=== PATIENT | female | born 1975 | race Caucasian/White ===

== ENCOUNTER 2017-05-15 11:28 | Outpatient (CLI) | payer OTHER ==
[2017-05-15 12:32] LABS: Basophils % (A) 0 %; Eosinophils # (A) 0.1 k/uL (0-0.7); Eosinophils % (A) 1 %; HCT 35.1 % (34.0-46.0); HGB 11.4 gm/dL (11.4-16.0); Lymphocytes # (A) 1.9 k/uL (1.0-4.8); Lymphocytes % (A) 25 %; MCH 29.7 pg (25.0-35.0); MCHC 32.6 g/dL (31.0-37.0); Mean Platelet Volume 7.4; Monocytes # (A) 0.4 k/uL (0-1.0); Monocytes % (A) 5 %; Neutrophils # (A) 5.2 k/uL (1.3-7.7); Neutrophils % (A) 68 %; Platelet Count 313 k/uL (150-450); RBC 3.85 m/uL (3.80-5.40); RDW 15.3 % (11.5-15.5); WBC 7.6 k/uL (3.8-10.6)
[2017-05-15 12:39] VITALS: BP 139/76; PULSE 100; TEMP 96.1
[2017-05-15 17:05] VITALS: RESP 16
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
== END 2017-05-15 16:20 | disposition home or self-care (01) ==
LOC: FBPOP 11:28
PROVIDERS: ATTEND Obstetrics & Gynecology Obstetrics
DX: O99.353 Diseases of the nervous system complicating pregnancy, third trimester (principal); G89.11 Acute pain due to trauma; Z3A.35 35 weeks gestation of pregnancy
CPT/HCPCS: 59025; 85025; 85384; 85610; 85730; G0463; 99213

== ENCOUNTER 2020-04-07 16:13 | Emergency (ER) | payer OTHER ==
[2020-04-07 16:22] VITALS: RESP 18
[2020-04-07] MEDS ORDERED: OXYMETAZOLINE 0.05% NASL SPRAY 1 SPRAY BOTTLE NASAL STA (16:24)
--- NOTE | 2020-04-07 16:46 | ED ---
General Adult HPI - General Chief complaint: ENT Stated complaint: Nose Bleed 3hs Time Seen by Provider: 04/07/20 16:23 Source: patient, RN notes reviewed Mode of arrival: ambulatory Limitations: no limitations - History of Present Illness Initial comments: 44-year-old female with a past medical history asthma, diabetes mellitus, chronic sinusitis presents to the emergency room for a chief complaint of nosebleed. Patient reports that 4 days ago she had a Covid test in the right side of the nose. States that yesterday around 3:00 in the morning she had a nosebleed. Patient states that since that time has been bleeding on and off. States he was fine last night and this morning however when she would keep breakfast it started again. Patient then reports it started again a couple hours ago and took about an hour to stop. States it has mostly stopped at this point but is oozing a small amount. Patient does not take blood thinners. She does not have a history of nosebleeds.Patient has no other complaints at this time including shortness of breath, chest pain, abdominal pain, nausea or vomiting, headache, or visual changes. - Related Data Home Medications Medication Instructions Recorded Confirmed Beclomethasone Dip 80 Mcg/Puff 1 puff INHALATION BID 05/24/17 05/25/17 [Qvar 80 mcg] Previous Rx's Medication Instructions Recorded Acetaminophen-Codeine 300-30mg 2 each PO Q4HR PRN #20 tab 05/28/17 [Tylenol w/codeine #3] Albuterol Nebulized [Ventolin 2.5 mg INHALATION QID PRN #1 nebu 05/28/17 Nebulized] Ibuprofen [Motrin] 600 mg PO Q6HR PRN #30 tab 05/28/17 metFORMIN HCL [Glucophage] 1,000 mg PO BID-W/MEALS #60 tab 05/28/17 Allergies Allergy/AdvReac Type Severity Reaction Status Date / Time montelukast [From Singulair] Allergy Rash/Hives Verified 04/07/20 16:15 Penicillins Allergy Unknown Verified 04/07/20 16:15 Childhood Tetanus Vaccines and Toxoid Allergy Unknown Verified 04/07/20 16:15 [Tetanus Vaccines & Toxoid] Review of Systems ROS Statement: Those systems with pertinent positive or pertinent negative responses have been documented in the HPI. ROS Other: All systems not noted in ROS Statement are negative. Past Medical History Past Medical History: Asthma, Diabetes Mellitus, Neurologic Disorder, Seizure Disorder Additional Past Medical History / Comment(s): PCOS. NEUROPATHY History of Any Multi-Drug Resistant Organisms: None Reported Past Surgical History: Adenoidectomy, Section, Orthopedic Surgery, Tonsillectomy Additional Past Surgical History / Comment(s): LT KNEE ACL. ORAL Past Anesthesia/Blood Transfusion Reactions: No Reported Reaction Past Psychological History: Bipolar Smoking Status: Never smoker Past Alcohol Use History: None Reported, Rare Past Drug Use History: None Reported - Past Family History Mother Family Medical History: Diabetes Mellitus General Exam Limitations: no limitations General appearance: alert, in no apparent distress Head exam: Present: atraumatic, normocephalic, normal inspection Eye exam: Present: normal appearance, PERRL, EOMI. Absent: scleral icterus, conjunctival injection, periorbital swelling ENT exam: Present: normal exam, normal oropharynx (No bleeding in the oropharynx), mucous membranes moist, other (Patient has slight oozing from the right near) Neck exam: Present: normal inspection, full ROM. Absent: tenderness, meningismus, lymphadenopathy Respiratory exam: Present: normal lung sounds bilaterally. Absent: respiratory distress, wheezes, rales, rhonchi, stridor Cardiovascular Exam: Present: regular rate, normal rhythm, normal heart sounds. Absent: systolic murmur, diastolic murmur, rubs, gallop, clicks GI/Abdominal exam: Present: soft, normal bowel sounds. Absent: distended, tenderness, guarding, rebound, rigid Course Vital Signs 04/07/20 16:16 Temperature 98.5 F Pulse Rate 105 H Respiratory 18 Rate Blood Pressure 144/87 O2 Sat by Pulse 97 Oximetry Medical Decision Making - Medical Decision Making HPI physical exam as documented. Patient did have some minimal bleeding from the right nostril on presentation. She has no bleeding in the back of the throat. I do not see any area to cauterize bleeding. Afrin was applied and nasal clamp was applied for 20 minutes. Bleeding did cease. Patient was able to drink and ambulate throughout the ER without rebleed. I discussed nasal packing, at this time patient prefers to go home with Afrin and nasal clamp and return if bleeding worsens for packing. She will follow up with ENT, referral given. She will return here for any worsening symptoms. Disposition Clinical Impression: Epistaxis Disposition: HOME SELF-CARE Condition: Good Instructions (If sedation given, give patient instructions): Nosebleed (ED) Additional Instructions: If bleeding starts again spray 2 sprays of Afrin in each nostril and clamp for 20 minutes. If this does not work repeat this process one more time. If bleeding still will not stop return to the emergency department for nasal packing. Otherwise follow-up with ENT and try not to blow your nose. Is patient prescribed a controlled substance at d/c from ED?: No Referrals: Sylvester Babin DO [Primary Care Provider] - 1-2 days Pascual Oliveira MD [STAFF PHYSICIAN] - 1-2 days Time of Disposition: 17:13
[2020-04-07 17:29] VITALS: BP 142/77; PULSE 97; TEMP 98.1
== END 2020-04-07 17:29 | disposition home or self-care (01) ==
LOC: EC 16:13
DX: R04.0 Epistaxis (principal); J45.909 Unspecified asthma, uncomplicated; E11.40 Type 2 diabetes mellitus with diabetic neuropathy, unspecified; Z79.84 Long term (current) use of oral hypoglycemic drugs; Z88.0 Allergy status to penicillin; Z88.7 Allergy status to serum and vaccine; Z88.8 Allergy status to other drugs, medicaments and biological substances; Z79.51 Long term (current) use of inhaled steroids
CPT/HCPCS: 30901; 99283

== ENCOUNTER 2020-07-02 10:09 | Inpatient (IN) | payer OTHER ==
[2020-07-02] MEDS ORDERED: ONDANSETRON 4 MG/2 ML VIAL IVP STA (11:03)
[2020-07-02 11:07] LABS: Basophils % (A) 0 %; Eosinophils # (A) 0.5 k/uL (0-0.7); Eosinophils % (A) 6 %; HCT 38.6 % (34.0-46.0); HGB 13.1 gm/dL (11.4-16.0); Lymphocytes # (A) 1.6 k/uL (1.0-4.8); Lymphocytes % (A) 19 %; MCH 30.9 pg (25.0-35.0); MCV 90.8 fL (80.0-100.0); Mean Platelet Volume 6.7; Monocytes # (A) 0.4 k/uL (0-1.0); Monocytes % (A) 5 %; Neutrophils # (A) 5.9 k/uL (1.3-7.7); Neutrophils % (A) 69 %; Platelet Count 361 k/uL (150-450); RBC 4.25 m/uL (3.80-5.40); RDW 12.9 % (11.5-15.5); WBC 8.6 k/uL (3.8-10.6)
[2020-07-02 11:20] LABS: Partial Thromboplastin Time 24.3 sec (22.0-30.0); Prothrombin Time 10.4 sec (9.0-12.0)
[2020-07-02 11:29] LABS: ALT 32 U/L (4-34); AST 31 U/L (14-36); African American GFR (CKD) >90 (>60 ml/min/1.73 sqM); Albumin 4.3 g/dL (3.5-5.0); Alkaline Phosphatase 58 U/L (38-126); Anion Gap 8 mmol/L; Blood Urea Nitrogen 17 mg/dL (7-17); Calcium 9.8 mg/dL (8.4-10.2); Carbon Dioxide 34 mmol/L (22-30); Chloride 100 mmol/L (98-107); Glucose 129 mg/dL (74-99); Non-African American GFR(CKD) >90 (>60 ml/min/1.73 sqM); Potassium 4.3 mmol/L (3.5-5.1); Sodium 142 mmol/L (137-145); Total Bilirubin 0.9 mg/dL (0.2-1.3); Total Protein 7.4 g/dL (6.3-8.2)
[2020-07-02] MEDS ORDERED: OXYMETAZOLINE 0.05% NASL SPRAY 1 SPRAY BOTTLE NASAL STA (11:44)
[2020-07-02 12:10] LABS: Appearance,Urine Cloudy (Clear); Bacteria,Urine Rare /hpf; Bilirubin,Urine Negative (Negative); Blood,Urine Moderate (Negative); Color,Urine Yellow; Glucose,Urine (UA) Negative (Negative); Hyaline Casts,Urine 7 /lpf (0-2); Ketones,Urine Negative (Negative); Leukocyte Esterase,Urine Moderate (Negative); Mucus,Urine Many /hpf; Nitrite,Urine Negative (Negative); PH, Urine 5.5 (5.0-8.0); Protein,Urine 1+ (Negative); RBC,Urine 106 /hpf (0-5); Specific Gravity,Urine 1.029 (1.001-1.035); Squamous Epithelial Cell,Urine 10 /hpf (0-4); Urobilinogen,Urine <2.0 mg/dL (<2.0); WBC,Urine 2 /hpf (0-5)
--- NOTE | 2020-07-02 12:10 | ED ---
Nausea/Vomiting/Diarrhea HPI - General Chief complaint: Nausea/Vomiting/Diarrhea Stated complaint: vomiting blood Time Seen by Provider: 07/02/20 10:47 Source: patient, family Mode of arrival: wheelchair Limitations: no limitations - History of Present Illness Initial comments: Patient is a 44-year-old female, history of diabetes, presenting to emergency Department with complaints of bleeding from her sinuses for the past hour. 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 She was seeing Dr. Familia Nolan, as well as Dr. Sargent. She states she just recently is ready to start with treatment however she has not had any yet. Patient states she normally has some drainage from her sinuses but has never been this significant. Patient is continuously coughing up blood that is draining from back from her sinuses. She denies any nasal bleeding. She is having some nausea, little bit of stomach irritation. No fevers or chills. She denies any trauma. He is not on blood thinners. She has no further complaints at this time. Her vital signs are stable upon arrival. - Related Data Home Medications Medication Instructions Recorded Confirmed Albuterol Sulfate [Proair Hfa] 2 puff INHALATION RT-Q6H PRN 07/02/20 07/02/20 Atorvastatin [Lipitor] 40 mg PO HS 07/02/20 07/02/20 Cyanocobalamin (Vitamin B-12) 2,500 mcg PO BID 07/02/20 07/02/20 [Vitamin B-12] Ergocalciferol [Vitamin D2 (1250 1,250 mcg PO MO 07/02/20 07/02/20 Mcg = [id number] Iu)] Gabapentin [Neurontin] 300 mg PO HS 07/02/20 07/02/20 Ibuprofen [Motrin Ib] 800 mg PO Q8H PRN 07/02/20 07/02/20 Multivitamins, Thera [Multivitamin 1 tab PO DAILY 07/02/20 07/02/20 (formulary)] Previous Rx's Medication Instructions Recorded metFORMIN HCL [Glucophage] 1,000 mg PO BID-W/MEALS #60 tab 05/28/17 Allergies Allergy/AdvReac Type Severity Reaction Status Date / Time montelukast [From Singulair] Allergy Rash/Hives Verified 07/02/20 13:23 Penicillins Allergy Unknown Verified 07/02/20 13:23 Childhood Tetanus Vaccines and Toxoid Allergy Unknown Verified 07/02/20 13:23 [Tetanus Vaccines & Toxoid] Review of Systems ROS Statement: Those systems with pertinent positive or pertinent negative responses have been documented in the HPI. ROS Other: All systems not noted in ROS Statement are negative. Past Medical History Past Medical History: Asthma, Diabetes Mellitus, Neurologic Disorder, Seizure Disorder Additional Past Medical History / Comment(s): PCOS. NEUROPATHY. lymphoma dx 6 months History of Any Multi-Drug Resistant Organisms: None Reported Past Surgical History: Adenoidectomy, Section, Orthopedic Surgery, Tonsillectomy Additional Past Surgical History / Comment(s): LT KNEE ACL. ORAL Past Anesthesia/Blood Transfusion Reactions: No Reported Reaction Past Psychological History: Bipolar Smoking Status: Never smoker Past Alcohol Use History: None Reported, Rare Past Drug Use History: None Reported - Past Family History Mother Family Medical History: Diabetes Mellitus General Exam - General Exam Comments Initial Comments: GENERAL: Patient is well-developed and well-nourished. Patient is nontoxic and in mild distress. HEAD: Atraumatic, normocephalic. EYES: Pupils equal round and reactive to light, extraocular movements intact, sclera anicteric, conjunctiva are normal. Eyelids were unremarkable. ENT: TMs normal, nares patent, no bleeding or dried blood in the nasal passages, or opharynx clear without exudates. Patient has blood clot hanging from the posterior throat, continuously coughing up blood. NECK: Normal range of motion, supple without lymphadenopathy or JVD. LUNGS: Unlabored respirations. Breath sounds clear to auscultation bilaterally and eq ual. No wheezes rales or rhonchi. HEART: Regular rate and rhythm without murmurs, rubs or gallops. ABDOMEN: Soft, nontender, normoactive bowel sounds. No guarding, no rebound. No masses appreciated. : Deferred MUSCULOSKELETAL: Normal extremities with adequate strength and normal range of motion, no pitting or edema. No clubbing or cyanosis. NEUROLOGICAL: Patient is alert and oriented x 3. Motor and sensory are also intact. Cranial nerves II through XII grossly intact. Symmetrical smile. Normal speech, normal gait. PSYCH: Normal mood, normal affect. SKIN: Warm, Dry, normal turgor, no rashes or lesions noted. 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 She is not on blood thinners. Vitals are stable. Patient is not having any nasal bleeding, drainage is Posterior, blood clots visable from the posterior throat. CT scan on 05/14/20 reads a large enhancing mass within the nasopharynx which measures 4.9 cm x 3.9 cm. This mass is extending into the nasal passages bilaterally and causing blockage to the bilateral nasal passages. Labs are stable including stable hemoglobin, coag factors. I was able to speak with LIN Alcantara from Dr. Sargent's office who consulted with Dr. Izquierdo and agreed to admission, with consult to Dr. Lemus to possible start radiation. Upon reexamination, bleeding has stopped, patient is resting, vitals are stable. Patient accepted by Dr. snider. Case discussed with Dr. Bermudez. - Lab Data Result diagrams: 07/02/20 10:58 07/02/20 10:58 Lab Results 07/02/20 07/02/20 07/02/20 Range/Units 10:58 10:58 10:58 WBC 8.6 (3.8-10.6) k/uL RBC 4.25 (3.80-5.40) m/uL Hgb 13.1 (11.4-16.0) gm/dL Hct 38.6 (34.0-46.0) % MCV 90.8 (80.0-100.0) fL MCH 30.9 (25.0-35.0) pg MCHC 34.0 (31.0-37.0) g/dL RDW 12.9 (11.5-15.5) % Plt Count 361 (150-450) k/uL MPV 6.7 Neutrophils % 69 % Lymphocytes % 19 % Monocytes % 5 % Eosinophils % 6 % Basophils % 0 % Neutrophils # 5.9 (1.3-7.7) k/uL Lymphocytes # 1.6 (1.0-4.8) k/uL Monocytes # 0.4 (0-1.0) k/uL Eosinophils # 0.5 (0-0.7) k/uL Basophils # 0.0 (0-0.2) k/uL PT 10.4 (9.0-12.0) sec INR 1.0 (<1.2) APTT 24.3 (22.0-30.0) sec Sodium 142 (137-145) mmol/L Potassium 4.3 (3.5-5.1) mmol/L Chloride 100 (98-107) mmol/L Carbon Dioxide 34 H (22-30) mmol/L Anion Gap 8 mmol/L BUN 17 (7-17) mg/dL Creatinine 0.60 (0.52-1.04) mg/dL Est GFR (CKD-EPI)AfAm >90 (>60 ml/min/1.73 sqM) Est GFR (CKD-EPI)NonAf >90 (>60 ml/min/1.73 sqM) Glucose 129 H (74-99) mg/dL Calcium 9.8 (8.4-10.2) mg/dL Total Bilirubin 0.9 (0.2-1.3) mg/dL AST 31 (14-36) U/L ALT 32 (4-34) U/L Alkaline Phosphatase 58 (38-126) U/L Total Protein 7.4 (6.3-8.2) g/dL Albumin 4.3 (3.5-5.0) g/dL Urine Color Urine Appearance (Clear) Urine pH (5.0-8.0) Ur Specific [place] (1.001-1.035) Urine Protein (Negative) Urine Glucose (UA) (Negative) Urine Ketones (Negative) Urine Blood (Negative) Urine Nitrite (Negative) Urine Bilirubin (Negative) Urine Urobilinogen (<2.0) mg/dL Ur Leukocyte Esterase (Negative) Urine RBC (0-5) /hpf Urine WBC (0-5) /hpf Ur Squamous Epith Cells (0-4) /hpf Urine Bacteria (None) /hpf Hyaline Casts (0-2) /lpf Urine Mucus (None) /hpf Urine HCG, Qual (Not Detectd) 07/02/20 07/02/20 Range/Units 11:54 11:54 WBC (3.8-10.6) k/uL RBC (3.80-5.40) m/uL Hgb (11.4-16.0) gm/dL Hct (34.0-46.0) % MCV (80.0-100.0) fL MCH (25.0-35.0) pg MCHC (31.0-37.0) g/dL RDW (11.5-15.5) % Plt Count (150-450) k/uL MPV Neutrophils % % Lymphocytes % % Monocytes % % Eosinophils % % Basophils % % Neutrophils # (1.3-7.7) k/uL Lymphocytes # (1.0-4.8) k/uL Monocytes # (0-1.0) k/uL Eosinophils # (0-0.7) k/uL Basophils # (0-0.2) k/uL PT (9.0-12.0) sec INR (<1.2) APTT (22.0-30.0) sec Sodium (137-145) mmol/L Potassium (3.5-5.1) mmol/L Chloride (98-107) mmol/L Carbon Dioxide (22-30) mmol/L Anion Gap mmol/L BUN (7-17) mg/dL Creatinine (0.52-1.04) mg/dL Est GFR (CKD-EPI)AfAm (>60 ml/min/1.73 sqM) Est GFR (CKD-EPI)NonAf (>60 ml/min/1.73 sqM) Glucose (74-99) mg/dL Calcium (8.4-10.2) mg/dL Total Bilirubin (0.2-1.3) mg/dL AST (14-36) U/L ALT (4-34) U/L Alkaline Phosphatase (38-126) U/L Total Protein (6.3-8.2) g/dL Albumin (3.5-5.0) g/dL Urine Color Yellow Urine Appearance Cloudy H (Clear) Urine pH 5.5 (5.0-8.0) Ur Specific [place] 1.029 (1.001-1.035) Urine Protein 1+ H (Negative) Urine Glucose (UA) Negative (Negative) Urine Ketones Negative (Negative) Urine Blood Moderate H (Negative) Urine Nitrite Negative (Negative) Urine Bilirubin Negative (Negative) Urine Urobilinogen <2.0 (<2.0) mg/dL Ur Leukocyte Esterase Moderate H (Negative) Urine RBC 106 H (0-5) /hpf Urine WBC 2 (0-5) /hpf Ur Squamous Epith Cells 10 H (0-4) /hpf Urine Bacteria Rare H (None) /hpf Hyaline Casts 7 H (0-2) /lpf Urine Mucus Many H (None) /hpf Urine HCG, Qual Not Detected (Not Detectd) Disposition Clinical Impression: Hemorrhage pharyngeal, History of lymphoma Disposition: ADMITTED IP TO THIS HOSP Condition: Stable Decision Date: 07/02/20 Decision Time: 13:31
[2020-07-02] MEDS ORDERED: ACETAMINOPHEN TAB 325 MG TAB PO PRN (12:50)
[2020-07-02] MEDS ORDERED: NALOXONE 0.4 MG/ML 1 ML VIAL IV PRN (12:50)
[2020-07-02] MEDS ORDERED: OCTREOTIDE 100 MCG/ML INJ IVP STA (13:03)
[2020-07-02] MEDS ORDERED: DESMOPRESSIN ACETATE 40 MCG in SODIUM CHLORIDE 0.9% 50 ML IVPB ONE (13:20)
--- NOTE | 2020-07-02 14:45 | P.HPIM ---
History of Present Illness This is a pleasant 44 years old female with past medical history of asthma, diabetes mellitus, seizure disorder, she was diagnosed with lymphoma 6 months ago and she follows up with Dr. martin also she has history of bipolar disord er. She presents because of vomiting blood for 1 hour, she was spitting blood. Patient states that she was recently diagnosed with lymphoma, she had blood nose for three days, and ENT MD at [place] did MRI with biopsy which came back positive for lymphoma, she was diagnosed with lymphoma including both maxillary sinuses as per patient and the tube from her right ear to cheek per her description. she saw about three weeks ago who referred her to at [facility] in [place] who diagnosed her the type of lymphoma and she is stage IE, she suppose to see again but she started noticing vomiting blood in the morning over two day and on today she woke up with pouring blood down her throat and she came to ED Abdominal she had some abdominal discomfort which is resolved with medication. She denies nausea vomiting. Her urinalysis was suspicious for infection however patient denies any symptoms, no dysuria urgency or hesitancy, no suprapubic tenderness, no other flank pain. No other symptoms She denies smoking, alcohol or illicit drugs She denies depression or active bipolar symptoms, she denies suicidal ideation She is hemodynamically stable. Labs are stable including normal hemoglobin at 13.1, rest of CBC, INR, BMP and liver enzymes are unremarkable. Urinalysis is suspicious for infection, urine analysis culture is pending Emergency room staff Dr. Dr. Sargent wanted to be admitted and evaluated by in- house oncologist and radiotherapist In the emergency room she received 1 dose of desmopressin and started on octreotide and Afrin nasal spray Review of Systems CONSTITUTIONAL: No fever, no malaise, no fatigue. HEENT: No recent visual problems or hearing problems. Denied any sore throat. CARDIOVASCULAR: No orthopnea, PND, no palpitations, no syncope. PULMONARY: No shortness of breath, no cough, no hemoptysis. GASTROINTESTINAL: No diarrhea, no nausea, no vomiting, no abdominal pain. Normoactive bowel sounds. NEUROLOGICAL: No headaches, no weakness, no numbness. HEMATOLOGICAL: Denies any bleeding or petechiae. GENITOURINARY: Denies any burning micturition, frequency, or urgency. MUSCULOSKELETAL/RHEUMATOLOGICAL: Denies any joint pain, swelling, or any muscle pain. ENDOCRINE: Denies any polyuria or polydipsia. Past Medical History Past Medical History: Asthma, Diabetes Mellitus, Neurologic Disorder, Seizure Disorder Additional Past Medical History / Comment(s): PCOS. NEUROPATHY. lymphoma dx 6 months History of Any Multi-Drug Resistant Organisms: None Reported Past Surgical History: Adenoidectomy, Section, Orthopedic Surgery, Tonsillectomy Additional Past Surgical History / Comment(s): LT KNEE ACL. ORAL Past Anesthesia/Blood Transfusion Reactions: No Reported Reaction Past Psychological History: Bipolar Smoking Status: Never smoker Past Alcohol Use History: None Reported, Rare Past Drug Use History: None Reported - Past Family History Mother Family Medical History: Diabetes Mellitus Medications and Allergies Home Medications Medication Instructions Recorded Confirmed Type metFORMIN HCL [Glucophage] 1,000 mg PO BID-W/MEALS #60 tab 05/28/17 07/02/20 Rx Albuterol Sulfate [Proair Hfa] 2 puff INHALATION RT-Q6H PRN 07/02/20 07/02/20 History Atorvastatin [Lipitor] 40 mg PO HS 07/02/20 07/02/20 History Cyanocobalamin (Vitamin B-12) 2,500 mcg PO BID 07/02/20 07/02/20 History [Vitamin B-12] Ergocalciferol [Vitamin D2 (1250 1,250 mcg PO MO 07/02/20 07/02/20 History Mcg = 55027 Iu)] Gabapentin [Neurontin] 300 mg PO HS 07/02/20 07/02/20 History Ibuprofen [Motrin Ib] 800 mg PO Q8H PRN 07/02/20 07/02/20 History Multivitamins, Thera [Multivitamin 1 tab PO DAILY 07/02/20 07/02/20 History (formulary)] Allergies Allergy/AdvReac Type Severity Reaction Status Date / Time [facility] Allergy Rash/Hives Verified 07/02/20 13:23 Penicillins Allergy Unknown Verified 07/02/20 13:23 Childhood Tetanus Vaccines and Toxoid Allergy Unknown Verified 07/02/20 13:23 [Tetanus Vaccines & Toxoid] Physical Exam Vitals: Vital Signs Temp Pulse Resp BP Pulse Ox 07/02/20 10:18 98.1 F 105 H 18 121/75 96 Intake and Output 07/01/20 07/02/20 07/02/20 22:59 06:59 14:59 Other: Weight 141.974 kg -GENERAL: The patient is alert and oriented x3, not in any acute distress. Obese HEENT: Pupils are round and equally reacting to light. EOMI. No scleral icterus. No conjunctival pallor. Normocephalic, atraumatic. No pharyngeal erythema. No thyromegaly. CARDIOVASCULAR: S1 and S2 present. No murmurs, rubs, or gallops. PULMONARY: Chest is clear to auscultation, no wheezing or crackles. ABDOMEN: Soft, nontender, nondistended, normoactive bowel sounds. No palpable organomegaly. MUSCULOSKELETAL: No joint swelling or deformity. EXTREMITIES: No cyanosis, clubbing, or pedal edema. NEUROLOGICAL: Gross neurological examination did not reveal any focal deficits. SKIN: No rashes. No petechiae Results CBC & Chem 7: 07/02/20 10:58 07/02/20 10:58 Labs: Abnormal Lab Results - Last 24 Hours (Table) 07/02/20 07/02/20 Range/Units 10:58 11:54 Carbon Dioxide 34 H (22-30) mmol/L Glucose 129 H (74-99) mg/dL Urine Appearance Cloudy H (Clear) Urine Protein 1+ H (Negative) Urine Blood Moderate H (Negative) Ur Leukocyte Esterase Moderate H (Negative) Urine RBC 106 H (0-5) /hpf Ur Squamous Epith Cells 10 H (0-4) /hpf Urine Bacteria Rare H (None) /hpf Hyaline Casts 7 H (0-2) /lpf Urine Mucus Many H (None) /hpf Assessment and Plan Assessment: Possible acute epistaxis related to her lymphoma sinus disease Lymphoma and follow-up with Dr. martin Asymptomatic bacteriuria Type 2 diabetes mellitus History of Seizure disorder Hyperlipidemia Obesity Plan: this is a pleasant 44 years old female who presents with possible epistaxis related to her lymphoma disease. Hemoglobin stable, keep monitoring hemoglobin and vitals. Follow-up recommendation by oncologist and radiotherapist. Continue with octreotide per oncologist Labs and medication were reviewed.. Continue same treatment. Continue with symptomatic treatment. Resume home medication. Monitor lytes and vitals. DVT and GI prophylaxis. Further recommendations depends on the clinical course of the patient DVT prophylaxis: SCD GI Prophylaxis: Pepcid Prognosis is guarded
[2020-07-02 20:53] LABS: Glucose,Whole Blood 183 mg/dL (75-99)
[2020-07-02] MEDS ORDERED: ALBUTEROL NEBULIZED 2.5 MG/3 ML INHALATION PRN (22:22)
[2020-07-02] MEDS: GABAPENTIN 300 MG CAP PO SCH (22:55)
[2020-07-02] MEDS: ATORVASTATIN 40 MG TAB PO SCH (22:55)
[2020-07-02] MEDS: OCTREOTIDE 100 MCG/ML INJ IVP SCH (22:56)
[2020-07-02] MEDS: SODIUM CHLORIDE 0.9% 1,000 ML IV SCH (22:56)
--- NOTE | 2020-07-02 23:41 | P.CONS ---
History of Present Illness - Reason for Consult Consult date: 07/02/20 - History of Present Illness The pt is a 44 yr old WF, recently seen by Dr Sargent for initial consult, on 06/11/20. She had presented with recurrent head & facial central congestion diagnosed as recurrent & chronic sinusitis, treated with multiple courses of antibiotics with minimal or no benefit. She was eventually evaluated by ENT (Dr Marin) at [facility], CT Scan on 05/14/2010 revealed 4.9X3.9 cm nasopharyngeal mass confirmed by MRI, had biopsy on 05/21/2020 revealed diffuse large B-Cell lymphoma. The patient C/O facial pain but denied chest pain, SOB, fever, chills, night sweats, anorexia or weight loss. 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 Denied family history of hematologic malignancies, a sister, mother and 2 maternal aunts had uterine cancers She is a lifetime non smoker, denied ETOH use. The patient had been having some mild intermittent nasal bleeding. However over the last 2-3 days, she had felt increased amount of bleeding posteriorly down the back of her throat, and was also coughing and pooling of blood. She therefore came into the emergency room. Case was discussed with the ER physician. Patient was admitted for further management. She is not on any anticoagulation, or antiplatelet agents. She also denied any NSAID use on a regular basis Review of Systems Constitutional: Denies chills, Denies fever Eyes: denies blurred vision, denies pain Ears: deny: decreased hearing, ear discharge, earache, tinnitus Ears, nose, mouth and throat: Reports epistaxis, Reports nasal congestion, Reports nasal discharge, Reports sinus pressure Cardiovascular: Denies chest pain, Denies shortness of breath Respiratory: Reports hemoptysis, Denies cough Gastrointestinal: Reports hematemesis Genitourinary: Denies dysuria, Denies hematuria Musculoskeletal: Denies myalgias Integumentary: Denies pruritus, Denies rash Neurological: Denies numbness, Denies weakness Psychiatric: Denies anxiety, Denies depression Endocrine: Reports fatigue, Reports high blood sugars Hematologic/Lymphatic: Reports as per HPI Past Medical History Past Medical History: Asthma, Diabetes Mellitus, Hyperlipidemia, Pneumonia, Seizure Disorder Additional Past Medical History / Comment(s): Lymphoma both maxillary sinuses diagnosed approximately 3 months ago/pt states the plan is to be treated with chemotherapy and she is to have a port placed on 2020, NIDDM type II, neuropathy bilateral feet, bronchitis, PCOS, past epilepsy with last seizure 25 yrs ago, chronic headaches and chronic low back pain, arthritis bilateral knnes/feet/back, tendonitis bilateral elbows. History of Any Multi-Drug Resistant Organisms: None Reported Past Surgical History: Adenoidectomy, Section, Orthopedic Surgery, Tonsillectomy, Tubal Ligation Additional Past Surgical History / Comment(s): sinus biopsy, Age 16-T&A with sinus scraped and used cocaine/pt accidentally was overdosed and arrested twice, L knee ACL removed, wisdom teeth extractions. Past Anesthesia/Blood Transfusion Reactions: No Reported Reaction Smoking Status: Never smoker - Past Family History Mother Family Medical History: Diabetes Mellitus Additional Family Medical History / Comment(s): Mother of covid pneumonia. Father Family Medical History: Asthma, Cancer, Seizure Disorder Additional Family Medical History / Comment(s): Father of laryngeal cancer. He was smoker. Medications and Allergies Home Medications Medication Instructions Recorded Confirmed Type metFORMIN HCL [Glucophage] 1,000 mg PO BID-W/MEALS #60 tab 05/28/17 07/02/20 Rx Albuterol Sulfate [Proair Hfa] 2 puff INHALATION RT-Q6H PRN 07/02/20 07/02/20 History Atorvastatin [Lipitor] 40 mg PO HS 07/02/20 07/02/20 History Cyanocobalamin (Vitamin B-12) 2,500 mcg PO BID 07/02/20 07/02/20 History [Vitamin B-12] Ergocalciferol [Vitamin D2 (1250 1,250 mcg PO MO 07/02/20 07/02/20 History Mcg = 02946 Iu)] Gabapentin [Neurontin] 300 mg PO HS 07/02/20 07/02/20 History Ibuprofen [Motrin Ib] 800 mg PO Q8H PRN 07/02/20 07/02/20 History Multivitamins, Thera [Multivitamin 1 tab PO DAILY 07/02/20 07/02/20 History (formulary)] Allergies Allergy/AdvReac Type Severity Reaction Status Date / Time montelukast [From Singulair] Allergy Rash/Hives Verified 03/18/21 13:23 Penicillins Allergy Unknown Verified 07/02/20 13:23 Childhood Tetanus Vaccines and Toxoid Allergy Unknown Verified 07/02/20 13:23 [Tetanus Vaccines & Toxoid] Physical Exam Vitals: Vital Signs Temp Pulse Pulse Resp BP BP Pulse Ox 07/02/20 20:40 98.3 F 112 H 16 139/84 94 L 07/02/20 18:18 98.4 F 90 18 120/78 99 07/02/20 13:41 88 18 122/81 98 07/02/20 10:18 98.1 F 105 H 18 121/75 96 Intake and Output 07/02/20 07/02/20 07/03/20 14:59 22:59 06:59 Other: Weight 141.974 kg 141.974 kg - Constitutional General appearance: no acute distress - EENT Eyes: EOMI, PERRLA ENT: hearing grossly normal, normal oropharynx - Neck Thyroid: bilateral: normal size - Respiratory Respiratory: bilateral: CTA - Cardiovascular Rhythm: regular Heart sounds: normal: S1, S2 - Gastrointestinal General gastrointestinal: normal bowel sounds, soft - Integumentary Integumentary: normal - Neurologic Neurologic: CNII-XII intact - Musculoskeletal Musculoskeletal: strength equal bilaterally - Psychiatric Psychiatric: A&O x's 3, appropriate affect Bilateral nasal condition, manifested by nasal/muffled voice Results CBC & Chem 7: 07/02/20 10:58 07/02/20 10:58 Labs: Abnormal Lab Results - Last 24 Hours (Table) 07/02/20 07/02/20 07/02/20 Range/Units 10:58 11:54 20:51 Carbon Dioxide 34 H (22-30) mmol/L Glucose 129 H (74-99) mg/dL POC Glucose (mg/dL) 183 H (75-99) mg/dL Urine Appearance Cloudy H (Clear) Urine Protein 1+ H (Negative) Urine Blood Moderate H (Negative) Ur Leukocyte Esterase Moderate H (Negative) Urine RBC 106 H (0-5) /hpf Ur Squamous Epith Cells 10 H (0-4) /hpf Urine Bacteria Rare H (None) /hpf Hyaline Casts 7 H (0-2) /lpf Urine Mucus Many H (None) /hpf Assessment and Plan (1) Hemorrhage pharyngeal Narrative/Plan: The patient is having bleeding from her nasopharyngeal lymphomatous lesion, down the posterior pharyngeal wall causing hematemesis and hemoptysis. Fortunately hemoglobin has not dropped significantly and remains in the normal range. She was having fairly mild intermittent hemoptysis before, but current presentation was much more severe. - Patient was therefore admitted for further management. Case discussed in d etail with the ER physician. Also discussed with the patient. senior living control of symptoms would obviously depend treatment of the underlying pathology, with chemoimmunotherapy. For immediate, short-term control, DDAVP was recommended. Since admission session hemorrhage has essentially ceased. - Continue to monitor. If this recurs, for short-term control, Sandostatin gtt can be utilized. In that case radiation oncology can also be consulted for short course of radiation, prior to starting chemo-immunotherapy. Current Visit: Yes Status: Acute Code(s): R04.1 - HEMORRHAGE FROM THROAT SNOMED Code(s): 834438795 (2) Non-Hodgkin's lymphoma of nasopharynx Narrative/Plan: This is a new diagnosis, and the patient has not started any treatment. As noted above, short course of radiotherapy can be utilized, if needed for control of hemorrhage. Patient was subsequently proceed to definitive treatment with chemotherapy-immunotherapy on discharge. Follow-up with Dr. Sargent on discharge Current Visit: Yes Status: Acute Code(s): C85.91 - NON-HODGKIN LYMPHOMA, UN SP, NODES OF HEAD, FACE, AND NECK SNOMED Code(s): 268939582
[2020-07-03] MEDS: OCTREOTIDE 100 MCG/ML INJ IVP SCH ×3 (06:05→21:03)
[2020-07-03 07:24] LABS: Glucose,Whole Blood 166 mg/dL (75-99)
[2020-07-03 09:52] LABS: Basophils % (A) 0 %; Eosinophils # (A) 0.6 k/uL (0-0.7); Eosinophils % (A) 7 %; HCT 36.5 % (34.0-46.0); Lymphocytes # (A) 1.7 k/uL (1.0-4.8); Lymphocytes % (A) 20 %; MCH 30.6 pg (25.0-35.0); MCHC 32.9 g/dL (31.0-37.0); MCV 93.1 fL (80.0-100.0); Mean Platelet Volume 6.7; Monocytes # (A) 0.3 k/uL (0-1.0); Monocytes % (A) 3 %; Neutrophils # (A) 5.8 k/uL (1.3-7.7); Neutrophils % (A) 69 %; Platelet Count 362 k/uL (150-450); RBC 3.92 m/uL (3.80-5.40); RDW 13.1 % (11.5-15.5); WBC 8.4 k/uL (3.8-10.6)
[2020-07-03 10:08] LABS: ALT 34 U/L (4-34); AST 31 U/L (14-36); African American GFR (CKD) >90 (>60 ml/min/1.73 sqM); Albumin 4.3 g/dL (3.5-5.0); Albumin/Globulin Ratio 1.4; Alkaline Phosphatase 61 U/L (38-126); Anion Gap 8 mmol/L; Blood Urea Nitrogen 16 mg/dL (7-17); Calcium 8.9 mg/dL (8.4-10.2); Carbon Dioxide 32 mmol/L (22-30); Chloride 96 mmol/L (98-107); Globulin 3.1 g/dL; Glucose 161 mg/dL (74-99); Non-African American GFR(CKD) >90 (>60 ml/min/1.73 sqM); Potassium 4.7 mmol/L (3.5-5.1); Sodium 136 mmol/L (137-145); Total Bilirubin 1.6 mg/dL (0.2-1.3); Total Protein 7.4 g/dL (6.3-8.2)
[2020-07-03] MEDS: metFORMIN 500 MG TAB PO SCH ×2 (10:08→20:23)
[2020-07-03] MEDS: CYANOCOBALAMIN 500 MCG TAB PO SCH ×2 (10:08→21:03)
[2020-07-03] MEDS: MULTIVITAMINS, THERA 1 EACH TAB PO SCH (10:09)
[2020-07-03] MEDS: INSULIN ASPART (NovoLOG) 100 UNIT/ML VIAL SQ SCH ×4 (10:09→21:08)
[2020-07-03] MEDS: IBUPROFEN 400 MG TAB PO PRN (10:10)
[2020-07-03 11:29] LABS: Glucose,Whole Blood 161 mg/dL (75-99)
[2020-07-03] MEDS ORDERED: LIDOCAINE 1% INJ 10MG/ML (20 ML MDV) SQ ONE (12:01)
[2020-07-03] MEDS: predniSONE 20 MG TAB PO SCH (12:36)
[2020-07-03] MEDS: SODIUM CHLORIDE 0.9% 1,000 ML IV SCH (12:36)
[2020-07-03] MEDS: PANTOPRAZOLE 40 MG TABLET PO SCH ×2 (12:36→21:03)
--- NOTE | 2020-07-03 12:41 | IR ---
PICC LINE PLACEMENT: HISTORY: Infection requiring long-term antibiotic therapy PROCEDURE: Ultrasound and fluoroscopic guidance of PICC line placement. COMPLICATIONS: None ANESTHESIA: 1. 1% Lidocaine locally. FINDINGS/TECHNIQUE: The procedure was explained to the patient. The risks, complications, benefits and alternatives were discussed and any questions were answered. Informed consent was obtained. The patient was placed supine on the fluoroscopic table and prepped and draped in the usual sterile fash ion. Utilizing a 21 gauge needle and sonographic and fluoroscopic guidance, access in the left basi lic vein was achieved and there is placement of a 0.018 guidewire. The vein is patent. A 4-F sheath was placed over the guidewire. The guidewire and dilator were removed and a 4-F. PICC line was plac ed through the sheath with the tip at the level of the SVC. The sheath was removed, the catheter was flushed and sutured into position. The patient was stable throughout the procedure and remained sta ble upon discharge from the Department of Radiology. The vein puncture was patent under ultrasound. A johnson scale image was obtained to document patency of the vein punctured. All elements of the maximal barrier technique were utilized. FLUOROSCOPY TIME: 1.8 minutes, one image submitted IMPRESSION: Successful PICC line placement under ultrasound and fluoroscopic guidance.
--- NOTE | 2020-07-03 12:58 | P.CONS ---
History of Present Illness - Reason for Consult Consult date: 07/03/20 epistaxis Requesting physician: Zach Izquierdo - Chief Complaint bleeding/coughing up blood - History of Present Illness The patient is a 44-year-old female who was recently diagnosed with a diffuse large B-cell lymphoma involving a large mass in the nasopharynx. She has been u ndergoing workup, with plans to start chemotherapy in the next couple weeks. She unfortunately presented to the hospital secondary to increased bleeding of the tumor resulting in hemoptysis. The patient's oncologic history began with complaints of recurrent congestion and sinus discomfort. She underwent a CT scan of the sinuses on May 14 showing a 4.9 x 3.9 cm mass within the nasopharynx. This was biopsied on May 21 at [facility] and was consistent with diffuse large B-cell lymphoma. The patient was evaluated at [facility], and states that she had a PET scan downtown this past week. She was scheduled to have her port placement this coming week. Unfortunately, the patient had 2 episodes of coughing up blood this past week. On Monday, when she woke up in the morning she reports having an episode of feeling nauseous and vomiting bright red blood. She states she had a second episode of this 2 days later. She states that yesterday morning, she coughed up a blood clot, and after this was intermittently spitting up blood all morning. She feels the blood trickled down the back of her throat and then coughs it up. She states that she did this from 9 AM to 3 PM yesterday prompting or hospital visit. When talking the patient this morning, she unfortunately developed another episode of active bleeding and spitting the blood into a basin. Review of Systems Constitutional: Denies chills, Denies fever Eyes: denies blurred vision Ears: deny: decreased hearing Ears, nose, mouth and throat: Reports epistaxis, Reports nasal congestion, Reports sinus pressure Cardiovascular: Denies chest pain Respiratory: Reports cough, Denies dyspnea Gastrointestinal: Reports nausea, Reports vomiting, Denies bloating Musculoskeletal: Denies low back pain Integumentary: Denies rash Neurological: Denies confusion, Denies double vision Psychiatric: Denies anxiety Past Medical History Past Medical History: Asthma, Diabetes Mellitus, Hyperlipidemia, Pneumonia, Seizure Disorder Additional Past Medical History / Comment(s): Lymphoma both maxillary sinuses diagnosed approximately 3 months ago/pt states the plan is to be treated with chemotherapy and she is to have a port placed on 2020, NIDDM type II, neuropathy bilateral feet, bronchitis, PCOS, past epilepsy with last seizure 25 yrs ago, chronic headaches and chronic low back pain, arthritis bilateral knnes/feet/back, tendonitis bilateral elbows. History of Any Multi-Drug Resistant Organisms: None Reported Past Surgical History: Adenoidectomy, Section, Orthopedic Surgery, Tonsillectomy, Tubal Ligation Additional Past Surgical History / Comment(s): sinus biopsy, Age 16-T&A with sinus scraped and used cocaine/pt accidentally was overdosed and arrested twice, L knee ACL removed, wisdom teeth extractions. Past Anesthesia/Blood Transfusion Reactions: No Reported Reaction Smoking Status: Never smoker - Past Family History Mother Family Medical History: Diabetes Mellitus Additional Family Medical History / Comment(s): Mother of covid pneumonia. Father Family Medical History: Asthma, Cancer, Seizure Disorder Additional Family Medical History / Comment(s): Father of laryngeal cancer. He was smoker. Medications and Allergies Home Medications Medication Instructions Recorded Confirmed Type metFORMIN HCL [Glucophage] 1,000 mg PO BID-W/MEALS #60 tab 05/28/17 07/02/20 Rx Albuterol Sulfate [Proair Hfa] 2 puff INHALATION RT-Q6H PRN 07/02/20 07/02/20 History Atorvastatin [Lipitor] 40 mg PO HS 07/02/20 07/02/20 History Cyanocobalamin (Vitamin B-12) 2,500 mcg PO BID 07/02/20 07/02/20 History [Vitamin B-12] Ergocalciferol [Vitamin D2 (1250 1,250 mcg PO MO 07/02/20 07/02/20 History Mcg = 86362 Iu)] Gabapentin [Neurontin] 300 mg PO HS 07/02/20 07/02/20 History Ibuprofen [Motrin Ib] 800 mg PO Q8H PRN 07/02/20 07/02/20 History Multivitamins, Thera [Multivitamin 1 tab PO DAILY 07/02/20 07/02/20 History (formulary)] Allergies Allergy/AdvReac Type Severity Reaction Status Date / Time montelukast [From Singulair] Allergy Rash/Hives Verified 07/02/20 13:23 Penicillins Allergy Unknown Verified 07/02/20 13:23 Childhood Tetanus Vaccines and Toxoid Allergy Unknown Verified 07/02/20 13:23 [Tetanus Vaccines & Toxoid] Physical Exam Vitals: Vital Signs Temp Pulse Pulse Resp BP BP Pulse Ox 07/03/20 08:00 16 07/03/20 04:45 98.4 F 100 16 125/78 100 07/02/20 20:40 98.3 F 112 H 16 139/84 94 L 07/02/20 18:18 98.4 F 90 18 120/78 99 07/02/20 13:41 88 18 122/81 98 Intake and Output 07/02/20 07/03/20 07/03/20 22:59 06:59 14:59 Intake Total 900 240 Balance 900 240 Intake: Intake, IV Titration 900 Amount Sodium Chloride 0.9% 1, 900 000 ml @ 75 mls/hr IV . [id number] [facility] Rx#:[id number] Oral 240 Other: Weight 141.974 kg - Constitutional General appearance: no acute distress, obese - EENT Eyes: EOMI, PERRLA ENT: NA/AT, no normal oropharynx (streaked blood noted along posterior oropharynx - mass not visible) - Neck Neck: no lymphadenopathy - Respiratory Respiratory: bilateral: CTA - Cardiovascular Rhythm: regular - Gastrointestinal General gastrointestinal: no distended, no tenderness - Integumentary Integumentary: no calor - Neurologic Neurologic: CNII-XII intact - Musculoskeletal Musculoskeletal: no generalized weakness - Psychiatric Psychiatric: A&O x's 3, appropriate affect, intact judgment & insight Results CBC & Chem 7: 07/03/20 08:59 07/03/20 08:59 Labs: Abnormal Lab Results - Last 24 Hours (Table) 07/02/20 07/03/20 07/03/20 Range/Units 20:51 07:23 08:59 Sodium 136 L (137-145) mmol/L Chloride 96 L (98-107) mmol/L Carbon Dioxide 32 H (22-30) mmol/L Glucose 161 H (74-99) mg/dL POC Glucose (mg/dL) 183 H 166 H (75-99) mg/dL Total Bilirubin 1.6 H (0.2-1.3) mg/dL 07/03/20 Range/Units 11:27 Sodium (137-145) mmol/L Chloride (98-107) mmol/L Carbon Dioxide (22-30) mmol/L Glucose (74-99) mg/dL POC Glucose (mg/dL) 161 H (75-99) mg/dL Total Bilirubin (0.2-1.3) mg/dL Assessment and Plan Assessment: The patient is a 44-year-old female who was recently diagnosed with a diffuse large B-cell lymphoma involving a large mass in the nasopharynx. She has been undergoing workup, with plans to start chemotherapy in the next couple weeks. She unfortunately presented to the hospital secondary to increased bleeding of the tumor resulting in hemoptysis. Plan: 1. Epistaxis/hemoptysis: As detailed above, the patient is currently having bleeding of the nasopharynx tumor down the back of her throat resulting in hemoptysis. She is planning to start chemotherapy in the near future. After consultation with [facility], they are now discussing initiation of prednisone with chemotherapy inpatient. I discussed with the patient that a short course of palliative radiotherapy may be considered if her bleeding persists or worsens. The preference for medical oncology is that she not initiate radiotherapy unless necessary. Therefore, I will have the patient do a CT simulation for treatment planning. This way, if the patient requires an urgent treatment for increased bleeding, we will have a plan ready for her. If her bleeding continues to improve and or resolves, we will hold off on radiotherapy entirely. I explained to the patient that typically the role of radiotherapy and aggressive lymphomas is secondary to that of chemotherapy. I explained that even if no radiotherapy is required at this time for acute bleeding, it may be advisable in the future following her chemotherapy to treat this initial site of disease within the nasopharynx. We will continue to monitor the patient clinically and please trend her hemoglobin. Time with Patient: Greater than 30
--- NOTE | 2020-07-03 13:07 | ECHOF ---
Referral Reason:chemo MEASUREMENTS -------- HEIGHT: 167.6 cm WEIGHT: 142.0 kg BP: RVIDd: 3.0 cm (< 3.3) IVSd: 1.3 cm (0.6 - 1.1) LVIDd: 4.5 cm (3.9 - 5.3) LVPWd: 1.0 cm (0.6 - 1.1) IVSs: 1.7 cm LVIDs: 2.6 cm LVPWs: 1.5 cm LA Diam: 3.5 cm (2.7 - 3.8) Ao Diam: 2.9 cm (2.0 - 3.7) MV EXCURSION: 15.856 mm (> 18.000) MV EF SLOPE: 40 mm/s (70 - 150) EPSS: 0.8 cm MV E Everardo: 1.15 m/s MV DecT: 202 ms MV A Everardo: 0.82 m/s MV E/A Ratio: 1.39 AV maxP.86 mmHg AV meanP.14 mmHg FINDINGS -------- Sinus rhythm. This was a technically adequate study. The left ventricular size is normal. There is mild concentric left ventricular hypertrophy. Overa ll left ventricular systolic function is normal with, an EF between 60 - 65 %. The right ventricle is normal in size. The left atrium is normal in size. The right atrium is normal in size. Interatrial and interventricular septum intact. Aortic valve is trileaflet and is mildly thickened. There is trace mitral regurgitation. The tricuspid valve appears structurally normal. Trace/mild (physiologic) pulmonic regurgitation. The aortic root size is normal. Normal inferior vena cava with normal inspiratory collapse consistent with estimated right atrial pre ssure of 5 mmHg. There is no pericardial effusion. CONCLUSIONS -------- 1. The left ventricular size is normal. 2. There is mild concentric left ventricular hypertrophy. 3. Overall left ventricular systolic function is normal with, an EF between 60 - 65 %. 4. Aortic valve is trileaflet and is mildly thickened. 5. There is trace mitral regurgitation. 6. Trace/mild (physiologic) pulmonic regurgitation. 7. There is no pericardial effusion. [employer] MANAGER: ARCELIA Palacios
[2020-07-03] MEDS: ONDANSETRON 4 MG/2 ML VIAL IVP PRN (14:29)
[2020-07-03] MEDS ORDERED: APREPITANT 130 MG/18 ML VIAL IVP ONE (16:30)
[2020-07-03] MEDS ORDERED: ONDANSETRON 16 MG in SODIUM CHLORIDE 0.9% 50 ML IVPB ONE (16:30)
[2020-07-03] MEDS ORDERED: FAMOTIDINE 20 MG/2 ML VIAL IVP ONE (16:30)
[2020-07-03] MEDS ORDERED: ACETAMINOPHEN TAB 325 MG TAB PO ONE (16:30)
[2020-07-03] MEDS ORDERED: diphenhydrAMINE 50 MG/ML 1 ML VIAL IVP ONE (16:30)
[2020-07-03] MEDS ORDERED: methylPREDNISolone SOD SUCCI 125 MG/2 ML VIAL IVP ONE (16:30)
[2020-07-03] MEDS ORDERED: DOXORUBICIN HCL IV ONE ×2 (17:00)
[2020-07-03] MEDS ORDERED: predniSONE 50 MG TAB PO SCH (17:00)
[2020-07-03] MEDS ORDERED: CYCLOPHOSPHAMIDE 1,800 MG in SODIUM CHLORIDE 0.9% 250 ML IV ONE (17:00)
[2020-07-03 17:36] LABS: Glucose,Whole Blood 220 mg/dL (75-99)
[2020-07-03] MEDS ORDERED: SODIUM CHLORIDE 0.9% IV NR (18:00)
[2020-07-03] MEDS ORDERED: RITUXIMAB PVVR IV NR (18:00)
--- NOTE | 2020-07-03 18:00 | P.PN ---
Subjective Progress Note Date: 07/03/20 Principal diagnosis: double expression LBCL - Nasopharyngeal Bleeding has stopped overnight, although restarted this am. Objective - Vital Signs Vital signs: Vital Signs Temp 97.6 F 07/03/20 14:00 Pulse 100 07/03/20 04:45 Resp 16 07/03/20 14:00 BP 136/78 07/03/20 14:00 Pulse Ox 98 07/03/20 14:00 Intake & Output 07/02/20 07/03/20 07/03/20 18:59 06:59 18:59 Intake Total 900 240 Balance 900 240 Weight 141.974 kg Intake: Intake, IV Titration 900 Amount Sodium Chloride 0.9% 1, 900 000 ml @ 75 mls/hr IV . [id number] [facility] Rx#:[id number] Oral 240 - Exam - Constitutional General appearance: no acute distress - EENT Eyes: EOMI, PERRLA ENT: hearing grossly normal, normal oropharynx - Neck Thyroid: bilateral: normal size - Respiratory Respiratory: bilateral: CTA - Cardiovascular Rhythm: regular Heart sounds: normal: S1, S2 - Gastrointestinal General gastrointestinal: normal bowel sounds, soft - Integumentary Integumentary: normal - Neurologic Neurologic: CNII-XII intact - Musculoskeletal Musculoskeletal: strength equal bilaterally - Psychiatric Psychiatric: A&O x's 3, appropriate affect Bilateral nasal condition, manifested by nasal/muffled voice - Labs CBC & Chem 7: 07/03/20 08:59 07/03/20 08:59 Labs: Abnormal Lab Results - Last 24 Hours (Table) 07/02/20 07/03/20 07/03/20 Range/Units 20:51 07:23 08:59 Sodium 136 L (137-145) mmol/L Chloride 96 L (98-107) mmol/L Carbon Dioxide 32 H (22-30) mmol/L Glucose 161 H (74-99) mg/dL POC Glucose (mg/dL) 183 H 166 H (75-99) mg/dL Total Bilirubin 1.6 H (0.2-1.3) mg/dL 07/03/20 07/03/20 Range/Units 11:27 17:34 Sodium (137-145) mmol/L Chloride (98-107) mmol/L Carbon Dioxide (22-30) mmol/L Glucose (74-99) mg/dL POC Glucose (mg/dL) 161 H 220 H (75-99) mg/dL Total Bilirubin (0.2-1.3) mg/dL Assessment and Plan Plan: Assessment and Plan (1) Hemorrhage pharyngeal - Improved overnight although restarted this am for 30-60 minutes but stopped on own - I had discussed case with Dr. Santana from [facility] and unfortunetely she is not a candidate for clinical trial, therefore she will be best to be started on standard of care with R-CHOP pardeep. - ECHO today and Picc line - CHOP to begin today - Would like to hold off radiation therapy if possible. - Prednisone 100mg daily and PPI initiated. (2) Non-Hodgkin's lymphoma of nasopharynx - As above This is a new diagnosis, and the patient has not started any treatment. Physician Attest: I have completed the full history and physical and agree with above dictation, dictated as a scribe
[2020-07-03] MEDS: ATORVASTATIN 40 MG TAB PO SCH (21:03)
[2020-07-03] MEDS: GABAPENTIN 300 MG CAP PO SCH (21:03)
[2020-07-03 21:17] LABS: Glucose,Whole Blood 200 mg/dL (75-99)
[2020-07-04] MEDS: OCTREOTIDE 100 MCG/ML INJ IVP SCH ×3 (05:46→21:20)
[2020-07-04 07:50] LABS: Glucose,Whole Blood 186 mg/dL (75-99)
[2020-07-04] MEDS: predniSONE 20 MG TAB PO SCH (08:57)
[2020-07-04] MEDS: CYANOCOBALAMIN 500 MCG TAB PO SCH ×2 (08:57→21:19)
[2020-07-04] MEDS: PANTOPRAZOLE 40 MG TABLET PO SCH ×2 (08:57→17:34)
[2020-07-04] MEDS: MULTIVITAMINS, THERA 1 EACH TAB PO SCH (08:57)
[2020-07-04] MEDS: INSULIN ASPART (NovoLOG) 100 UNIT/ML VIAL SQ SCH ×4 (08:58→21:21)
[2020-07-04] MEDS: metFORMIN 500 MG TAB PO SCH ×2 (08:58→17:34)
[2020-07-04] MEDS: IBUPROFEN 400 MG TAB PO PRN (09:04)
[2020-07-04 10:04] LABS: ALT 31 U/L (4-34); AST 30 U/L (14-36); African American GFR (CKD) >90 (>60 ml/min/1.73 sqM); Albumin 4.2 g/dL (3.5-5.0); Albumin/Globulin Ratio 1.4; Alkaline Phosphatase 53 U/L (38-126); Anion Gap 10 mmol/L; Blood Urea Nitrogen 14 mg/dL (7-17); Calcium 9.4 mg/dL (8.4-10.2); Carbon Dioxide 27 mmol/L (22-30); Chloride 101 mmol/L (98-107); Glucose 210 mg/dL (74-99); Non-African American GFR(CKD) >90 (>60 ml/min/1.73 sqM); Phosphorus 3.5 mg/dL (2.5-4.5); Potassium 4.5 mmol/L (3.5-5.1); Sodium 138 mmol/L (137-145); Total Protein 7.2 g/dL (6.3-8.2); Uric Acid 4.5 mg/dL (3.7-7.4)
--- NOTE | 2020-07-04 10:11 | P.PN ---
Subjective Progress Note Date: 07/03/20 Principal diagnosis: Epistaxis 44 years old female with past medical history of asthma, diabetes mellitus, seizure disorder, she was diagnosed with lymphoma 6 months ago and she follows up with Dr. martin also she has history of bipolar disorder. She presents because of vomiting blood for 1 hour, she was spitting blood. Patient states that she was recently diagnosed with lymphoma, she had blood nose for three days, and ENT MD at [facility] did MRI with biopsy which came back p ositive for lymphoma, she was diagnosed with lymphoma including both maxillary sinuses as per patient and the tube from her right ear to cheek per her description. she saw about three weeks ago who referred her to at [facility] in [place] who diagnosed her the type of lymphoma and she is stage IE, she suppose to see again but she started noticing vomiting blood in the morning over two day and on today she woke up with pouring blood down her throat and she came to ED Abdominal she had some abdominal discomfort which is resolved with medication. She denies nausea vomiting. Her urinalysis was suspicious for infection however patient denies any symptoms, no dysuria urgency or hesitancy, no suprapubic tenderness, no other flank pain. No other symptoms She denies smoking, alcohol or illicit drugs She denies depression or active bipolar symptoms, she denies suicidal ideation She is hemodynamically stable. Labs are stable including normal hemoglobin at 13.1, rest of CBC, INR, BMP and liver enzymes are unremarkable. Urinalysis is suspicious for infection, urine analysis culture is pending Emergency room staff Dr. Dr. Sargent wanted to be admitted and evaluated by in- house oncologist and radiotherapist In the emergency room she received 1 dose of desmopressin and started on octreotide and Afrin nasal spray 07/03/2020 Patient is seen and evaluated sitting up; did have another episode of epistaxis; patient did have PICC line placed and reports she was seen by oncology with plans to start chemotherapy; radiation oncology to see patient; short course of palliative radiotherapy may be considered if her bleeding persists or worsens. The preference for medical oncology is that she not initiate radiotherapy unless necessary Objective - Vital Signs Vital signs: Vital Signs Temp 98.4 F 07/03/20 04:45 Pulse 100 07/03/20 04:45 Resp 16 07/03/20 04:45 BP 125/78 07/03/20 04:45 Pulse Ox 100 07/03/20 04:45 Intake & Output 07/02/20 07/03/20 07/03/20 18:59 06:59 18:59 Intake Total 900 240 Balance 900 240 Weight 141.974 kg Intake: Intake, IV Titration 900 Amount Sodium Chloride 0.9% 1, 900 000 ml @ 75 mls/hr IV . [id number] [facility] Rx#:[id number] Oral 240 - Exam -GENERAL: The patient is alert and oriented x3, not in any acute distress. Obese HEENT: Pupils are round and equally reacting to light. EOMI. No scleral icterus. No conjunctival pallor. Normocephalic, atraumatic. No pharyngeal erythema. No thyromegaly. CARDIOVASCULAR: S1 and S2 present. No murmurs, rubs, or gallops. PULMONARY: Chest is clear to auscultation, no wheezing or crackles. ABDOMEN: Soft, nontender, nondistended, normoactive bowel sounds. No palpable organomegaly. MUSCULOSKELETAL: No joint swelling or deformity. EXTREMITIES: No cyanosis, clubbing, or pedal edema. NEUROLOGICAL: Gross neurological examination did not reveal any focal deficits. SKIN: No rashes. No petechiae - Labs CBC & Chem 7: 07/03/20 08:59 07/04/20 09:22 Labs: Abnormal Lab Results - Last 24 Hours (Table) 07/02/20 07/02/20 07/03/20 Range/Units 11:54 20:51 07:23 Sodium (137-145) mmol/L Chloride (98-107) mmol/L Carbon Dioxide (22-30) mmol/L Glucose (74-99) mg/dL POC Glucose (mg/dL) 183 H 166 H (75-99) mg/dL Total Bilirubin (0.2-1.3) mg/dL Urine Appearance Cloudy H (Clear) Urine Protein 1+ H (Negative) Urine Blood Moderate H (Negative) Ur Leukocyte Esterase Moderate H (Negative) Urine RBC 106 H (0-5) /hpf Ur Squamous Epith Cells 10 H (0-4) /hpf Urine Bacteria Rare H (None) /hpf Hyaline Casts 7 H (0-2) /lpf Urine Mucus Many H (None) /hpf 07/03/20 07/03/20 Range/Units 08:59 11:27 Sodium 136 L (137-145) mmol/L Chloride 96 L (98-107) mmol/L Carbon Dioxide 32 H (22-30) mmol/L Glucose 161 H (74-99) mg/dL POC Glucose (mg/dL) 161 H (75-99) mg/dL Total Bilirubin 1.6 H (0.2-1.3) mg/dL Urine Appearance (Clear) Urine Protein (Negative) Urine Blood (Negative) Ur Leukocyte Esterase (Negative) Urine RBC (0-5) /hpf Ur Squamous Epith Cells (0-4) /hpf Urine Bacteria (None) /hpf Hyaline Casts (0-2) /lpf Urine Mucus (None) /hpf Assessment and Plan Assessment: Possible acute epistaxis related to her lymphoma sinus disease Lymphoma and follow-up with Dr. martin Asymptomatic bacteriuria Type 2 diabetes mellitus History of Seizure disorder Hyperlipidemia Obesity Plan: this is a pleasant 44 years old female who presents with possible epistaxis related to her lymphoma disease. Hemoglobin stable, keep monitoring hemoglobin and vitals. Follow-up recommendation by oncologist and radiotherapist. Continue with octreotide per oncologist Labs and medication were reviewed.. Continue same treatment. Continue with symptomatic treatment. Resume home medication. Monitor lytes and vitals. DVT and GI prophylaxis. Further recommendations depends on the clinical course of the patient DVT prophylaxis: SCD GI Prophylaxis: Pepcid Prognosis is guarded
[2020-07-04 11:04] LABS: Basophils % (A) 0 %; Eosinophils % (A) 0 %; HCT 34.7 % (34.0-46.0); HGB 11.7 gm/dL (11.4-16.0); Lymphocytes # (A) 0.2 k/uL (1.0-4.8); Lymphocytes % (A) 1 %; MCH 30.4 pg (25.0-35.0); MCHC 33.8 g/dL (31.0-37.0); MCV 89.9 fL (80.0-100.0); Mean Platelet Volume 6.6; Monocytes # (A) 0.3 k/uL (0-1.0); Monocytes % (A) 2 %; Neutrophils # (A) 12.9 k/uL (1.3-7.7); Neutrophils % (A) 96 %; Platelet Count 353 k/uL (150-450); RBC 3.86 m/uL (3.80-5.40); RDW 13.3 % (11.5-15.5); WBC 13.4 k/uL (3.8-10.6)
[2020-07-04 12:57] LABS: Glucose,Whole Blood 240 mg/dL (75-99)
[2020-07-04] MEDS: ONDANSETRON 4 MG/2 ML VIAL IVP PRN ×2 (13:16→23:47)
--- NOTE | 2020-07-04 17:03 | P.PN ---
Subjective Progress Note Date: 07/04/20 Principal diagnosis: Epistaxis 44 years old female with past medical history of asthma, diabetes mellitus, seizure disorder, she was diagnosed with lymphoma 6 months ago and she follows up with Dr. martin also she has history of bipolar disorder. She presents because of vomiting blood for 1 hour, she was spitting blood. Patient states that she was recently diagnosed with lymphoma, she had blood nose for three days, and ENT MD at [facility] did MRI with biopsy which came back p ositive for lymphoma, she was diagnosed with lymphoma including both maxillary sinuses as per patient and the tube from her right ear to cheek per her description. she saw about three weeks ago who referred her to at [facility] in [place] who diagnosed her the type of lymphoma and she is stage IE, she suppose to see again but she started noticing vomiting blood in the morning over two day and on today she woke up with pouring blood down her throat and she came to ED Abdominal she had some abdominal discomfort which is resolved with medication. She denies nausea vomiting. Her urinalysis was suspicious for infection however patient denies any symptoms, no dysuria urgency or hesitancy, no suprapubic tenderness, no other flank pain. No other symptoms She denies smoking, alcohol or illicit drugs She denies depression or active bipolar symptoms, she denies suicidal ideation She is hemodynamically stable. Labs are stable including normal hemoglobin at 13.1, rest of CBC, INR, BMP and liver enzymes are unremarkable. Urinalysis is suspicious for infection, urine analysis culture is pending Emergency room staff Dr. Dr. Sargent wanted to be admitted and evaluated by in- house oncologist and radiotherapist In the emergency room she received 1 dose of desmopressin and started on octreotide and Afrin nasal spray 07/03/2020 Patient is seen and evaluated sitting up; did have another episode of epistaxis; patient did have PICC line placed and reports she was seen by oncology with plans to start chemotherapy; radiation oncology to see patient; short course of palliative radiotherapy may be considered if her bleeding persists or worsens. The preference for medical oncology is that she not initiate radiotherapy unless necessary 07/04/2020 She does seen and evaluated sitting up in bedside chair; had couple episodes of nosebleed last night; no further episodes this morning Vital signs remained stable; hemoglobin remains stable at 11.7 Primary oncology team wants to hold off on radiation therapy if possible; unfortunately patient is not a candidate for clinical trial and is started on standard R CHOP Remains on prednisone 100 mg daily and PPI Objective - Vital Signs Vital signs: Vital Signs Temp 97.7 F 07/04/20 05:10 Pulse 94 07/04/20 08:00 Resp 22 07/04/20 08:00 BP 105/64 07/04/20 05:10 Pulse Ox 94 L 07/04/20 05:10 Intake & Output 07/03/20 07/04/20 07/04/20 18:59 06:59 18:59 Intake Total 840 448.8 Balance 840 448.8 Intake: Intake, IV Titration 600 348.8 Amount Sodium Chloride 0.9% 1, 600 000 ml @ 75 mls/hr IV . [id number] [facility] Rx#:[id number] riTUXimab PVVR 900 mg In 348.8 Sodium Chloride 0.9% 500 ml 500 ml @ Titrate IV . Q0M NR Rx#:[id number] Oral 240 100 Other: Voiding Method Toilet Toilet # Voids 1 1 - Exam -GENERAL: The patient is alert and oriented x3, not in any acute distress. Obese HEENT: Pupils are round and equally reacting to light. EOMI. No scleral icterus. No conjunctival pallor. Normocephalic, atraumatic. No pharyngeal erythema. No thyromegaly. CARDIOVASCULAR: S1 and S2 present. No murmurs, rubs, or gallops. PULMONARY: Chest is clear to auscultation, no wheezing or crackles. ABDOMEN: Soft, nontender, nondistended, normoactive bowel sounds. No palpable organomegaly. MUSCULOSKELETAL: No joint swelling or deformity. EXTREMITIES: No cyanosis, clubbing, or pedal edema. NEUROLOGICAL: Gross neurological examination did not reveal any focal deficits. SKIN: No rashes. No petechiae - Labs CBC & Chem 7: 07/04/20 09:22 07/04/20 09:22 Labs: Abnormal Lab Results - Last 24 Hours (Table) 07/03/20 07/03/20 07/04/20 Range/Units 17:34 21:04 07:37 WBC (3.8-10.6) k/uL Neutrophils # (1.3-7.7) k/uL Lymphocytes # (1.0-4.8) k/uL Glucose (74-99) mg/dL POC Glucose (mg/dL) 220 H 200 H 186 H (75-99) mg/dL 07/04/20 07/04/20 Range/Units 09:22 09:22 WBC 13.4 H (3.8-10.6) k/uL Neutrophils # 12.9 H (1.3-7.7) k/uL Lymphocytes # 0.2 L (1.0-4.8) k/uL Glucose 210 H (74-99) mg/dL POC Glucose (mg/dL) (75-99) mg/dL Assessment and Plan Assessment: Possible acute epistaxis related to her lymphoma sinus disease Lymphoma and follow-up with Dr. martin Asymptomatic bacteriuria Type 2 diabetes mellitus History of Seizure disorder Hyperlipidemia Obesity Plan: this is a pleasant 44 years old female who presents with possible epistaxis related to her lymphoma disease. Hemoglobin stable, keep monitoring hemoglobin and vitals. Follow-up recommendation by oncologist and radiotherapist. Continue with octreotide per oncologist Labs and medication were reviewed.. Continue same treatment. Continue with symptomatic treatment. Resume home medication. Monitor lytes and vitals. DVT and GI prophylaxis. Further recommendations depends on the clinical course of the patient DVT prophylaxis: SCD GI Prophylaxis: Pepcid Prognosis is guarded
[2020-07-04 17:23] LABS: Glucose,Whole Blood 222 mg/dL (75-99)
--- NOTE | 2020-07-04 19:25 | P.PN ---
Subjective Progress Note Date: 07/04/20 The patient tolerated cycle cycle 1 with CHOP well. She reports no untoward side effects. She has had no oral or nasal bleeding. She states that nasal and sinus congestion on the left feels subjectively better. Objective - Vital Signs Vital signs: Vital Signs Temp 98.0 F 07/04/20 12:27 Pulse 86 07/04/20 12:27 Resp 18 07/04/20 12:27 BP 104/69 07/04/20 12:27 Pulse Ox 98 07/04/20 12:27 Intake & Output 07/04/20 07/04/20 07/05/20 06:59 18:59 06:59 Intake Total 448.8 100 Balance 448.8 100 Intake: Intake, IV Titration 348.8 100 Amount Sodium Chloride 0.9% 1, 100 000 ml @ 75 mls/hr IV . [id number] [facility] Rx#:[id number] riTUXimab PVVR 900 mg In 348.8 Sodium Chloride 0.9% 500 ml 500 ml @ Titrate IV . Q0M NR Rx#:[id number] Oral 100 Other: Voiding Method Toilet Toilet # Voids 1 1 - Constitutional General appearance: Present: no acute distress - EENT Eyes: Present: EOMI ENT: Present: hearing grossly normal, normal oropharynx - Respiratory Respiratory: bilateral: CTA - Cardiovascular Rhythm: regular Heart sounds: normal: S1, S2 - Gastrointestinal General gastrointestinal: Present: normal bowel sounds, soft - Integumentary Integumentary: Present: normal - Neurologic Neurologic: Present: CNII-XII intact - Musculoskeletal Musculoskeletal: Present: strength equal bilaterally - Psychiatric Psychiatric: Present: A&O x's 3, appropriate affect - Labs CBC & Chem 7: 07/04/20 09:22 07/04/20 09:22 Labs: Abnormal Lab Results - Last 24 Hours (Table) 07/03/20 07/04/20 07/04/20 Range/Units 21:04 07:37 09:22 WBC 13.4 H (3.8-10.6) k/uL Neutrophils # 12.9 H (1.3-7.7) k/uL Lymphocytes # 0.2 L (1.0-4.8) k/uL Glucose (74-99) mg/dL POC Glucose (mg/dL) 200 H 186 H (75-99) mg/dL 07/04/20 07/04/20 07/04/20 Range/Units 09:22 12:26 17:12 WBC (3.8-10.6) k/uL Neutrophils # (1.3-7.7) k/uL Lymphocytes # (1.0-4.8) k/uL Glucose 210 H (74-99) mg/dL POC Glucose (mg/dL) 240 H 222 H (75-99) mg/dL Assessment and Plan (1) Non-Hodgkin's lymphoma of nasopharynx Narrative/Plan: Patient received cycle 1 of chemotherapy, as recommended by the [facility], inpatient on 07/14/20. So far she is tolerated it well. Continue to monitor for development of chemotherapy related side effects and treat as needed. Continue supportive medications. Labs reviewed today. Continue to monitor labs for postchemotherapy effects, including development of any tumor lysis. Current Visit: Yes Status: Acute Code(s): C85.91 - NON-HODGKIN LYMPHOMA, UNS P, NODES OF HEAD, FACE, AND NECK SNOMED Code(s): 908993413 (2) Hemorrhage pharyngeal Narrative/Plan: The patient has had no obvious bleeding since yesterday a.m. Change in hemoglobin today is fairly minor compared to yesterday at 11+ versus 12. Again continue to monitor. If hemorrhage recurs, treatment options include repeat DDAVP, Sandostatin, as well as antifibrinolytic agents. Patient has also been seen for radiation if needed. Current Visit: Yes Status: Acute Code(s): R04.1 - HEMORRHAGE FROM THROAT SNOMED Code(s): 435348172
[2020-07-04 20:56] LABS: Glucose,Whole Blood 198 mg/dL (75-99)
[2020-07-04] MEDS: ATORVASTATIN 40 MG TAB PO SCH (21:19)
[2020-07-04] MEDS: GABAPENTIN 300 MG CAP PO SCH (21:19)
[2020-07-05 07:25] LABS: Glucose,Whole Blood 119 mg/dL (75-99)
[2020-07-05] MEDS: INSULIN ASPART (NovoLOG) 100 UNIT/ML VIAL SQ SCH ×4 (08:37→20:15)
[2020-07-05] MEDS: PANTOPRAZOLE 40 MG TABLET PO SCH ×2 (08:41→16:42)
[2020-07-05] MEDS: predniSONE 20 MG TAB PO SCH (08:41)
[2020-07-05] MEDS: metFORMIN 500 MG TAB PO SCH ×2 (08:41→16:42)
[2020-07-05] MEDS: MULTIVITAMINS, THERA 1 EACH TAB PO SCH (08:41)
[2020-07-05 09:12] LABS: Basophils # (A) 0 X 10*3/uL (0.00-0.10); Basophils % (A) 0 %; Eosinophils # (A) 0.03 X 10*3/uL (0.04-0.35); Eosinophils % (A) 0.4 %; HCT 33.4 % (37.2-46.3); HGB 10.8 g/dL (12.0-15.0); Lymphocytes # (A) 0.63 X 10*3/uL (0.90-5.00); Lymphocytes % (A) 8.9 %; MCH 29.9 pg (27.0-32.0); MCHC 32.3 g/dL (32.0-37.0); MCV 92.5 fL (80.0-97.0); Mean Platelet Volume 9.1 fL (9.5-12.2); Monocytes # (A) 0.62 X 10*3/uL (0.20-1.00); Monocytes % (A) 8.8 %; Neutrophils # (A) 5.74 X 10*3/uL (1.80-7.70); Neutrophils % (A) 81.6 %; Platelet Count 297 X 10*3/uL (140-440); RBC 3.61 X 10*6/uL (4.10-5.20); RDW 12.6 % (11.5-14.5); WBC 7.04 X 10*3/uL (4.50-10.00)
[2020-07-05 09:35] LABS: African American GFR (CKD) 122.1 (60.0-200.0); Albumin 4.2 g/dL (3.80-4.90); Albumin/Globulin Ratio 1.83 (1.60-3.17); Anion Gap 5.4 mmol/L (4.00-12.00); BUN/Creat Ratio 27.14 Ratio (12.00-20.00); Calcium 9.5 mg/dL (8.7-10.3); Carbon Dioxide 32.6 mmol/L (21.6-31.8); Globulin 2.3 g/dL (1.6-3.3); Non-African American GFR(CKD) 105.4 (60.0-200.0); Phosphorus 3.8 mg/dL (2.4-5.1); Total Bilirubin 0.6 mg/dL (0.2-1.2); Total Protein 6.5 g/dL (6.2-8.2); Uric Acid 5.4 mg/dL (2.9-7.7)
--- NOTE | 2020-07-05 11:57 | P.PN ---
Subjective Progress Note Date: 07/05/20 Report some abdominal cramping and nausea overnight, which improved with antiemetics. She continues to have some decrease pressure in the left nasal passage and states that she is able to breathe out, though she is still unable to breathe in. No significant bleeding noted. Appetite is maintained. Objective - Vital Signs Vital signs: Vital Signs Temp 97.7 F 07/05/20 05:00 Pulse 100 07/05/20 08:00 Resp 20 07/05/20 08:00 BP 127/79 07/05/20 05:00 Pulse Ox 97 07/05/20 05:00 Intake & Output 07/04/20 07/05/20 07/05/20 18:59 06:59 18:59 Intake Total 100 240 Balance 100 240 Intake: Intake, IV Titration 100 Amount Sodium Chloride 0.9% 1, 100 000 ml @ 75 mls/hr IV . [id number] [facility] Rx#:[id number] Oral 240 Other: Voiding Method Toilet Toilet Toilet # Voids 1 1 1 - Constitutional General appearance: Present: no acute distress - EENT Eyes: Present: EOMI ENT: Present: hearing grossly normal, normal oropharynx - Respiratory Respiratory: bilateral: CTA - Cardiovascular Rhythm: regular Heart sounds: normal: S1, S2 - Gastrointestinal General gastrointestinal: Present: normal bowel sounds, soft - Integumentary Integumentary: Present: normal - Neurologic Neurologic: Present: CNII-XII intact - Musculoskeletal Musculoskeletal: Present: generalized weakness, strength equal bilaterally - Psychiatric Psychiatric: Present: A&O x's 3, appropriate affect - Labs CBC & Chem 7: 07/05/20 05:47 07/05/20 05:47 Labs: Abnormal Lab Results - Last 24 Hours (Table) 07/04/20 07/04/20 07/04/20 Range/Units 12:26 17:12 20:38 RBC (4.10-5.20) X 10*6/uL Hgb (12.0-15.0) g/dL Hct (37.2-46.3) % MPV (9.5-12.2) fL Lymphocytes # (0.90-5.00) X 10*3/uL Eosinophils # (0.04-0.35) X 10*3/uL Carbon Dioxide (21.6-31.8) mmol/L BUN/Creatinine Ratio (12.00-20.00) Ratio Glucose (70-110) mg/dL POC Glucose (mg/dL) 240 H 222 H 198 H (75-99) mg/dL 07/05/20 07/05/20 07/05/20 Range/Units 05:47 05:47 07:24 RBC 3.61 L (4.10-5.20) X 10*6/uL Hgb 10.8 L (12.0-15.0) g/dL Hct 33.4 L (37.2-46.3) % MPV 9.1 L (9.5-12.2) fL Lymphocytes # 0.63 L (0.90-5.00) X 10*3/uL Eosinophils # 0.03 L (0.04-0.35) X 10*3/uL Carbon Dioxide 32.6 H (21.6-31.8) mmol/L BUN/Creatinine Ratio 27.14 H (12.00-20.00) Ratio Glucose 130 H (70-110) mg/dL POC Glucose (mg/dL) 119 H (75-99) mg/dL Assessment and Plan (1) Non-Hodgkin's lymphoma of nasopharynx Narrative/Plan: Patient is day #3 of cycle 1 with CHOP. She did have some side effects specifically nausea and abdominal cramping, controlled with medication. She otherwise appears to have tolerated her regimen well so far. Continue to monitor. Supportive care measures discussed Current Visit: Yes Status: Acute Code(s): C85.91 - NON-HODGKIN LYMPHOMA, UNSP, NODES OF HEAD, FACE, AND NECK SNOMED Code(s): 377055990 (2) Hemorrhage pharyngeal Narrative/Plan: This appears to have essentially ceased at this time. Monitor for recurrence, as tumor starts to breakdown with the effect of the chemotherapy. If the patient develops significant bleeding, then palliative radiation can be considered. She has already been prepped for the same amount if needed Current Visit: Yes Status: Acute Code(s): R04.1 - HEMORRHAGE FROM THROAT SNOMED Code(s): 572249646
[2020-07-05 12:29] LABS: Glucose,Whole Blood 168 mg/dL (75-99)
[2020-07-05] MEDS: CYANOCOBALAMIN 500 MCG TAB PO SCH ×2 (12:33→20:15)
[2020-07-05] MEDS: ONDANSETRON 4 MG/2 ML VIAL IVP PRN (12:35)
--- NOTE | 2020-07-05 16:29 | P.PN ---
Subjective Progress Note Date: 07/05/20 Principal diagnosis: Epistaxis 44 years old female with past medical history of asthma, diabetes mellitus, seizure disorder, she was diagnosed with lymphoma 6 months ago and she follows up with Dr. martin also she has history of bipolar disorder. She presents because of vomiting blood for 1 hour, she was spitting blood. Patient states that she was recently diagnosed with lymphoma, she had blood nose for three days, and ENT MD at [facility] did MRI with biopsy which came back p ositive for lymphoma, she was diagnosed with lymphoma including both maxillary sinuses as per patient and the tube from her right ear to cheek per her description. she saw about three weeks ago who referred her to at [facility] in [place] who diagnosed her the type of lymphoma and she is stage IE, she suppose to see again but she started noticing vomiting blood in the morning over two day and on today she woke up with pouring blood down her throat and she came to ED Abdominal she had some abdominal discomfort which is resolved with medication. She denies nausea vomiting. Her urinalysis was suspicious for infection however patient denies any symptoms, no dysuria urgency or hesitancy, no suprapubic tenderness, no other flank pain. No other symptoms She denies smoking, alcohol or illicit drugs She denies depression or active bipolar symptoms, she denies suicidal ideation She is hemodynamically stable. Labs are stable including normal hemoglobin at 13.1, rest of CBC, INR, BMP and liver enzymes are unremarkable. Urinalysis is suspicious for infection, urine analysis culture is pending Emergency room staff Dr. Dr. Sargent wanted to be admitted and evaluated by in- house oncologist and radiotherapist In the emergency room she received 1 dose of desmopressin and started on octreotide and Afrin nasal spray 07/03/2020 Patient is seen and evaluated sitting up; did have another episode of epistaxis; patient did have PICC line placed and reports she was seen by oncology with plans to start chemotherapy; radiation oncology to see patient; short course of palliative radiotherapy may be considered if her bleeding persists or worsens. The preference for medical oncology is that she not initiate radiotherapy unless necessary 07/04/2020 She does seen and evaluated sitting up in bedside chair; had couple episodes of nosebleed last night; no further episodes this morning Vital signs remained stable; hemoglobin remains stable at 11.7 Primary oncology team wants to hold off on radiation therapy if possible; unfortunately patient is not a candidate for clinical trial and is started on standard R CHOP Remains on prednisone 100 mg daily and PPI 07/05/2020 Patient is seen and evaluated sitting in bedside chair; reports some bleeding when she wipes her nose without any significant episodes of bleeding; patient reports difficulty with breathing through Vital signs stable with a temperature of 97.7, pulse 100, respiration 20, blood pressure 127/79 Labs are reviewed reveals white blood count of 7.04, hemoglobin 10.8 and platelet count of 297; chemical profile sodium 142, potassium 4.0, glucose 130 Patient is day #3 of cycle 1 with CHOP. She did have some side effects sp ecifically nausea and abdominal cramping, controlled with medication. She otherwise appears to have tolerated her regimen well so far. Continue to monitor. Supportive care measures discussed Objective - Vital Signs Vital signs: Vital Signs Temp 97.7 F 07/05/20 05:00 Pulse 100 07/05/20 08:00 Resp 20 07/05/20 08:00 BP 127/79 07/05/20 05:00 Pulse Ox 97 07/05/20 05:00 Intake & Output 07/04/20 07/05/20 07/05/20 18:59 06:59 18:59 Intake Total 100 240 Balance 100 240 Intake: Intake, IV Titration 100 Amount Sodium Chloride 0.9% 1, 100 000 ml @ 75 mls/hr IV . [id number] [facility] Rx#:[id number] Oral 240 Other: Voiding Method Toilet Toilet Toilet # Voids 1 1 1 - Exam -GENERAL: The patient is alert and oriented x3, not in any acute distress. Obese HEENT: Pupils are round and equally reacting to light. EOMI. No scleral icterus. No conjunctival pallor. Normocephalic, atraumatic. No pharyngeal erythema. No t hyromegaly. CARDIOVASCULAR: S1 and S2 present. No murmurs, rubs, or gallops. PULMONARY: Chest is clear to auscultation, no wheezing or crackles. ABDOMEN: Soft, nontender, nondistended, normoactive bowel sounds. No palpable organomegaly. MUSCULOSKELETAL: No joint swelling or deformity. EXTREMITIES: No cyanosis, clubbing, or pedal edema. NEUROLOGICAL: Gross neurological examination did not reveal any focal deficits. SKIN: No rashes. No petechiae - Labs CBC & Chem 7: 07/05/20 05:47 07/05/20 05:47 Labs: Abnormal Lab Results - Last 24 Hours (Table) 07/04/20 07/04/20 07/04/20 Range/Units 12:26 17:12 20:38 RBC (4.10-5.20) X 10*6/uL Hgb (12.0-15.0) g/dL Hct (37.2-46.3) % MPV (9.5-12.2) fL Lymphocytes # (0.90-5.00) X 10*3/uL Eosinophils # (0.04-0.35) X 10*3/uL Carbon Dioxide (21.6-31.8) mmol/L BUN/Creatinine Ratio (12.00-20.00) Ratio Glucose (70-110) mg/dL POC Glucose (mg/dL) 240 H 222 H 198 H (75-99) mg/dL 07/05/20 07/05/20 07/05/20 Range/Units 05:47 05:47 07:24 RBC 3.61 L (4.10-5.20) X 10*6/uL Hgb 10.8 L (12.0-15.0) g/dL Hct 33.4 L (37.2-46.3) % MPV 9.1 L (9.5-12.2) fL Lymphocytes # 0.63 L (0.90-5.00) X 10*3/uL Eosinophils # 0.03 L (0.04-0.35) X 10*3/uL Carbon Dioxide 32.6 H (21.6-31.8) mmol/L BUN/Creatinine Ratio 27.14 H (12.00-20.00) Ratio Glucose 130 H (70-110) mg/dL POC Glucose (mg/dL) 119 H (75-99) mg/dL Assessment and Plan Assessment: Possible acute epistaxis related to her lymphoma sinus disease Lymphoma and follow-up with Dr. martin Asymptomatic bacteriuria Type 2 diabetes mellitus History of Seizure disorder Hyperlipidemia Obesity Plan: this is a pleasant 44 years old female who presents with possible epistaxis related to her lymphoma disease. Hemoglobin stable, keep monitoring hemoglobin and vitals. Follow-up recommendation by oncologist and radiotherapist. Continue with octreotide per oncologist Labs and medication were reviewed.. Continue same treatment. Continue with symptomatic treatment. Resume home medication. Monitor lytes and vitals. DVT and GI prophylaxis. Further recommendations depends on the clinical course of the patient DVT prophylaxis: SCD GI Prophylaxis: Pepcid Prognosis is guarded
[2020-07-05 17:22] LABS: Glucose,Whole Blood 205 mg/dL (75-99)
[2020-07-05 20:04] LABS: Glucose,Whole Blood 153 mg/dL (75-99)
[2020-07-05] MEDS: GABAPENTIN 300 MG CAP PO SCH (20:15)
[2020-07-05] MEDS: ATORVASTATIN 40 MG TAB PO SCH (20:15)
[2020-07-06 07:11] LABS: Glucose,Whole Blood 115 mg/dL (75-99)
[2020-07-06] MEDS: INSULIN ASPART (NovoLOG) 100 UNIT/ML VIAL SQ SCH ×2 (07:50→12:44)
[2020-07-06] MEDS: MULTIVITAMINS, THERA 1 EACH TAB PO SCH (07:52)
[2020-07-06] MEDS: PANTOPRAZOLE 40 MG TABLET PO SCH ×2 (07:52→16:36)
[2020-07-06] MEDS: metFORMIN 500 MG TAB PO SCH ×2 (07:52→16:36)
[2020-07-06] MEDS: predniSONE 20 MG TAB PO SCH (07:52)
[2020-07-06] MEDS: CYANOCOBALAMIN 500 MCG TAB PO SCH (07:53)
[2020-07-06] MEDS ORDERED: ERGOCALCIFEROL 1,250 MCG (50,000 IU) CAPSULE PO SCH (09:00)
[2020-07-06 09:18] LABS: HCT 31.3 % (37.2-46.3); HGB 10.2 g/dL (12.0-15.0); MCH 30.6 pg (27.0-32.0); MCHC 32.6 g/dL (32.0-37.0); Mean Platelet Volume 9.3 fL (9.5-12.2); Platelet Count 277 X 10*3/uL (140-440); RBC 3.33 X 10*6/uL (4.10-5.20); RDW 12.7 % (11.5-14.5)
[2020-07-06 09:19] LABS: Basophils # (A) 0.01 X 10*3/uL (0.00-0.10); Basophils % (A) 0.2 %; Eosinophils # (A) 0.02 X 10*3/uL (0.04-0.35); Eosinophils % (A) 0.3 %; Lymphocytes # (A) 1.13 X 10*3/uL (0.90-5.00); Lymphocytes % (A) 17.7 %; Monocytes # (A) 0.48 X 10*3/uL (0.20-1.00); Monocytes % (A) 7.5 %; Neutrophils # (A) 4.74 X 10*3/uL (1.80-7.70)
[2020-07-06 09:31] LABS: African American GFR (CKD) 122.1 (60.0-200.0); Albumin 3.9 g/dL (3.80-4.90); Albumin/Globulin Ratio 2.05 (1.60-3.17); Anion Gap 8.2 mmol/L (4.00-12.00); Calcium 9.4 mg/dL (8.7-10.3); Carbon Dioxide 33.8 mmol/L (21.6-31.8); Globulin 1.9 g/dL (1.6-3.3); Non-African American GFR(CKD) 105.4 (60.0-200.0); Phosphorus 3.7 mg/dL (2.4-5.1); Potassium 3.7 mmol/L (3.5-5.5); Total Bilirubin 0.5 mg/dL (0.2-1.2); Total Protein 5.8 g/dL (6.2-8.2); Uric Acid 6.3 mg/dL (2.9-7.7)
[2020-07-06] MEDS: IBUPROFEN 400 MG TAB PO PRN (10:01)
[2020-07-06 12:00] LABS: Glucose,Whole Blood 193 mg/dL (75-99)
[2020-07-06 12:21] VITALS: BP 145/83; PULSE 66; RESP 17; TEMP 97.9
--- NOTE | 2020-07-06 14:00 | P.PN ---
Subjective Progress Note Date: 07/06/20 Principal diagnosis: double expression LBCL - Nasopharyngeal Tolerated CHOP well, Bleeding salgado resolved and she feels she can breath through nose. Plan for total of 5 days of prednisone and plan for Rituxan in office this week, Objective - Vital Signs Vital signs: Vital Signs Temp 97.9 F 07/06/20 12:20 Pulse 66 07/06/20 12:20 Resp 17 07/06/20 12:20 BP 145/83 07/06/20 12:20 Pulse Ox 97 07/06/20 12:20 Intake & Output 07/05/20 07/06/20 07/06/20 18:59 06:59 18:59 Intake Total 400 Balance 400 Intake: Oral 400 Other: Voiding Method Toilet Toilet # Voids 1 2 - Exam - Constitutional General appearance: no acute distress - EENT Eyes: EOMI, PERRLA ENT: hearing grossly normal, normal oropharynx - Neck Thyroid: bilateral: normal size - Respiratory Respiratory: bilateral: CTA - Cardiovascular Rhythm: regular Heart sounds: normal: S1, S2 - Gastrointestinal General gastrointestinal: normal bowel sounds, soft - Integumentary Integumentary: normal - Neurologic Neurologic: CNII-XII intact - Musculoskeletal Musculoskeletal: strength equal bilaterally - Psychiatric Psychiatric: A&O x's 3, appropriate affect Bilateral nasal condition, manifested by nasal/muffled voice - Labs CBC & Chem 7: 07/06/20 04:15 07/06/20 04:15 Labs: Abnormal Lab Results - Last 24 Hours (Table) 07/05/20 07/05/20 07/06/20 Range/Units 17:20 20:02 04:15 RBC 3.33 L (4.10-5.20) X 10*6/uL Hgb 10.2 L (12.0-15.0) g/dL Hct 31.3 L (37.2-46.3) % MPV 9.3 L (9.5-12.2) fL Eosinophils # 0.02 L (0.04-0.35) X 10*3/uL Carbon Dioxide (21.6-31.8) mmol/L BUN/Creatinine Ratio (12.00-20.00) Ratio Glucose (70-110) mg/dL POC Glucose (mg/dL) 205 H 153 H (75-99) mg/dL Total Protein (6.2-8.2) g/dL 07/06/20 07/06/20 07/06/20 Range/Units 04:15 07:09 11:59 RBC (4.10-5.20) X 10*6/uL Hgb (12.0-15.0) g/dL Hct (37.2-46.3) % MPV (9.5-12.2) fL Eosinophils # (0.04-0.35) X 10*3/uL Carbon Dioxide 33.8 H (21.6-31.8) mmol/L BUN/Creatinine Ratio 30.00 H (12.00-20.00) Ratio Glucose 129 H (70-110) mg/dL POC Glucose (mg/dL) 115 H 193 H (75-99) mg/dL Total Protein 5.8 L (6.2-8.2) g/dL Assessment and Plan Plan: Assessment and Plan (1) Hemorrhage pharyngeal - Resolved - Status post CHOP inpatient, rituxan as outpatient, continue PRednisone and PPI total 5 days - CHOP to begin today - Would like to hold off radiation therapy if possible. (2) Non-Hodgkin's lymphoma of nasopharynx - As above This is a new diagnosis Physician Attest: I have completed the full history and physical and agree with above dictation, dictated as a scribe
== END 2020-07-06 16:45 | disposition home or self-care (01) | DRG 841 ==
LOC: EC 10:09 → 5NMEDONC 13:47 → OBSVTOIN 07-04 07:36
PROVIDERS: ADMIT Internal Medicine; ATTEND Internal Medicine
PROC: 02HV33Z Insertion of Infusion Device into Superior Vena Cava, Percutaneous Approach (ICD-10-PCS; principal; 2020-07-03 14:40)
PROC: 3E04305 Introduction of Other Antineoplastic into Central Vein, Percutaneous Approach (ICD-10-PCS; principal; 2020-07-03 14:40)
DX: C83.31 Diffuse large B-cell lymphoma, lymph nodes of head, face, and neck (principal); K92.0 Hematemesis; Z68.43 Body mass index [BMI] 50.0-59.9, adult; E11.42 Type 2 diabetes mellitus with diabetic polyneuropathy; G40.909 Epilepsy, unspecified, not intractable, without status epilepticus; F31.9 Bipolar disorder, unspecified; Z20.822 Contact with and (suspected) exposure to COVID-19; R04.1 Hemorrhage from throat; J45.909 Unspecified asthma, uncomplicated; E78.5 Hyperlipidemia, unspecified; E66.9 Obesity, unspecified; R82.71 Bacteriuria; M19.90 Unspecified osteoarthritis, unspecified site; E28.2 Polycystic ovarian syndrome; G89.29 Other chronic pain; R11.2 Nausea with vomiting, unspecified; T45.1X5A Adverse effect of antineoplastic and immunosuppressive drugs, initial encounter; R04.0 Epistaxis; Z79.84 Long term (current) use of oral hypoglycemic drugs; Z79.899 Other long term (current) drug therapy; Z98.890 Other specified postprocedural states; Z83.3 Family history of diabetes mellitus; Z87.01 Personal history of pneumonia (recurrent); Z98.51 Tubal ligation status; Z88.0 Allergy status to penicillin; Z88.7 Allergy status to serum and vaccine; Z88.8 Allergy status to other drugs, medicaments and biological substances; Z82.5 Family history of asthma and other chronic lower respiratory diseases; Z82.0 Family history of epilepsy and other diseases of the nervous system; Z80.2 Family history of malignant neoplasm of other respiratory and intrathoracic organs
CPT/HCPCS: 36415; 36573; 77295; 77300; 77334; 80053; 81001; 81025; 84100; 84550; 84703; 85025; 85610; 85730; 87635; 93306; 96365; 96375; 96376; 99284

== ENCOUNTER → 2020-07-24 | Day surgery (SDC) | payer OTHER ==
[2020-07-20 12:00] VITALS: BMI 50.0
[~2020-07-24] MED LIST: ACETAMINOPHEN TAB 500 MG TAB PO PRN; DEXAMETHASONE SOD PHOSPHATE 4 MG/ML 1 ML VIAL IV ONE; HEPARIN SODIUM,PORCINE/PF 5,000 UNIT/0.5 ML SYRINGE SQ PRN; HYDROmorphone 0.5 MG/0.5 ML SYRINGE IVP PRN; KETOROLAC 15 MG/ML 1 ML VIAL IVP ONE; KETOROLAC 15 MG/ML 1 ML VIAL ONE; LIDOCAINE 1% INJ 10MG/ML (20 ML MDV) SQ ONE; MIDAZOLAM 2 MG/2 ML VIAL IV PRN; MIDAZOLAM 2 MG/2 ML VIAL ONE; NALOXONE 0.4 MG/ML 1 ML VIAL IV PRN; ONDANSETRON 4 MG/2 ML VIAL IVP ONE; PROPOFOL 10 MG/ML 20 ML VIAL IV ONE; Pre Op ABX Message 1 EACH MISC MISCELLANE ONE; SCOPOLAMINE 1.5MG/72HR PATCH TRANSDERM ONE; SODIUM CHLORIDE 0.9% 100 ML with ceFAZolin 2,000 MG IV ONE; diphenhydrAMINE 50 MG/ML 1 ML VIAL ONE; fentaNYL (PF) 50 MCG/ML 2 ML AMP ONE
[2020-07-24 06:57] VITALS: TEMP 96.9
[2020-07-24 07:13] LABS: Glucose,Whole Blood 161 mg/dL (75-99)
[2020-07-24] MEDS: LACTATED RINGERS 1,000 ML IV SCH ×2 (07:32→07:54)
--- NOTE | 2020-07-24 07:51 | P.GSHP ---
History of Present Illness H&P Date: 07/24/20 Chief Complaint: Lymphoma 44-year-old female recently diagnosed with lymphoma in the nasopharyngeal region. Patient has reinitiated chemotherapy. Has poor IV access. Here for Port-A-Cath placement for the administration of ongoing chemotherapy. Past Medical History Past Medical History: Asthma, Diabetes Mellitus, Hyperlipidemia, Pneumonia, Seizure Disorder Additional Past Medical History / Comment(s): Lymphoma both maxillary sinuses diagnosed approximately 3 months ago/pt states the plan is to be treated with chemotherapy and she is to have a port placed on Monday, 2020, NIDDM type II, neuropathy bilateral feet, bronchitis, PCOS, past epilepsy with last seizure 25 yrs ago, chronic headaches and chronic low back pain, arthritis bilateral knnes/feet/back, tendonitis bilateral elbows. History of Any Multi-Drug Resistant Organisms: None Reported Past Surgical History: Adenoidectomy, Section, Orthopedic Surgery, Tonsillectomy, Tubal Ligation Additional Past Surgical History / Comment(s): sinus biopsy, Age 16-T&A with sinus scraped and used cocaine/pt accidentally was overdosed and arrested twice, L knee ACL removed, wisdom teeth extractions. port inserted Past Anesthesia/Blood Transfusion Reactions: No Reported Reaction Past Psychological History: Bipolar Additional Psychological History / Comment(s): Pt resides with her spouse and their 2 children, her mother and father in law and her brother in law. Pt no longer drives d/t difficulty sleeping and concern for falling asleep at the wheel. She is otherwise independent. Smoking Status: Never smoker Past Alcohol Use History: Rare Past Drug Use History: None Reported - Past Family History Mother Family Medical History: Diabetes Mellitus Additional Family Medical History / Comment(s): Mother of covid pneumonia. Father Family Medical History: Asthma, Cancer, Seizure Disorder Additional Family Medical History / Comment(s): Father of laryngeal cancer. He was smoker. Medications and Allergies Home Medications Medication Instructions Recorded Confirmed Type metFORMIN HCL [Glucophage] 1,000 mg PO BID-W/MEALS #60 tab 05/28/17 07/24/20 Rx Albuterol Sulfate [Proair Hfa] 2 puff INHALATION RT-Q6H PRN 07/02/20 07/24/20 History Atorvastatin [Lipitor] 40 mg PO HS 07/02/20 07/24/20 History Cyanocobalamin (Vitamin B-12) 2,500 mcg PO BID 07/02/20 07/24/20 History [Vitamin B-12] Ergocalciferol [Vitamin D2 (1250 1,250 mcg PO MO 07/02/20 07/24/20 History Mcg = [id number] Iu)] Gabapentin [Neurontin] 300 mg PO HS 07/02/20 07/24/20 History Multivitamins, Thera [Multivitamin 1 tab PO DAILY 07/02/20 07/24/20 History (formulary)] Ondansetron Odt [Zofran ODT] 4 mg PO Q6HR PRN #45 tab 07/06/20 07/24/20 Rx Allergies Allergy/AdvReac Type Severity Reaction Status Date / Time montelukast [From Singulair] Allergy Rash/Hives Verified 07/24/20 06:51 Penicillins Allergy Unknown Verified 07/24/20 06:51 Childhood Tetanus Vaccines and Toxoid Allergy Unknown Verified 07/24/20 06:51 [Tetanus Vaccines & Toxoid] Surgical - Exam Vital Signs Temp Pulse Resp BP Pulse Ox 96.9 F L 104 H 16 155/72 96 07/24/20 06:55 07/24/20 06:55 07/24/20 06:55 07/24/20 06:55 07/24/20 06:55 Physical exam: General: Well-developed, well-nourished HEENT: Normocephalic, sclerae nonicteric Abdomen: Nontender, nondistended Extremities: No edema Neuro: Alert and oriented Results - Labs Abnormal Lab Results - Last 24 Hours (Table) 07/24/20 Range/Units 07:12 POC Glucose (mg/dL) 161 H (75-99) mg/dL Assessment and Plan (1) History of lymphoma Narrative/Plan: 44-year-old female with recent diagnosis of lymphoma. We'll proceed with Port-A-Cath placement at this time. Risks of bleeding, infection, DVT, pneumothorax, catheter malfunction, anesthesia related complications were discussed. The patient understands and wishes to proceed. Current Visit: No Status: Acute Code(s): Z85.79 - PRSNL HX OF MALIG NEOPLM OF LYMPHOID, HEMATPOETC & REL TISS SNOMED Code(s): 188787741
--- NOTE | 2020-07-24 08:58 | P.OP ---
Date of Procedure: 07/24/20 Procedure(s) Performed: PREOPERATIVE DIAGNOSIS: Lymphoma POSTOPERATIVE DIAGNOSIS: Same PROCEDURE: Port-A-Cath placement with fluoroscopic and ultrasound guidance SURGEON: Jayce EBL: Minimal ANESTHESIA: Sedation COMPLICATIONS: None OPERATIVE PROCEDURE: Patient was brought and placed on the operative table in the supine position. The patient was sedated per anesthesia that time. The chest and neck were prepped and draped in usual sterile fashion. The ultrasound probe was used to identify the location of the right internal jugular vein. The skin was localized with lidocaine. The Seldinger needle was advanced into the IJ under ultrasound guidance. The wire was advanced through the needle under fluoroscopic guidance into the superior vena cava. A port pocket was created in the right infraclavicular location. The patient had some prominent veins beneath the skin that were ligated using 3-0 Vicryl ties. The catheter was tunneled from the wire entrance site to the port pocket. The port was then connected to the catheter. The dilator introducer was threaded over the guidewire. The guidewire and dilator were then removed. The catheter was advanced through the introducer and introducer was then removed. The tip was seen to be in the right atrial junction via fluoroscopy. A picture of the radiograph showing the tip at the radial digital junction was taken. Port was flushed with both saline and a Hep-Lock solution. There was good flow both in and out of the port. The port was sutured in underlying tissues using 3-0 silk sutures. The subcutaneous tissues were reapproximated using 3-0 Vicryl sutures and the skin at both locations using 4-0 Monocryl sutures. Skin glue and vani rile dressings then applied. DISPOSITION: Stable to recovery room
[2020-07-24 09:02] VITALS: RESP 18
[2020-07-24 09:25] VITALS: BP 131/75; PULSE 87
--- NOTE | 2020-07-24 09:26 | XR ---
EXAMINATION TYPE: XR chest 1V confirm line [facility] DATE OF EXAM: 07/24/2020 COMPARISON: NONE HISTORY: 44 year-old female check line placement TECHNIQUE: Single frontal view of the chest is obtained. FINDINGS: Right anterior chest wall injection port with catheter tip at the mid SVC level. Left PICC tip at the upper SVC level. Heart normal size. Aorta and pulmonary vasculature within normal. Some hazy periphe ral lung densities relating to overlying soft tissue. Otherwise, no consolidation or pleural effusion . IMPRESSION: 1. Right anterior chest wall injection port with catheter tip at the mid SVC. 2. Left PICC line tip at the upper SVC. 3. No acute process identified.
--- NOTE | 2020-07-24 12:39 | FL ---
EXAMINATION TYPE: FL guided central line placement DATE OF EXAM: 07/24/2020 FLUOROSCOPY Fluoroscopy time of 5 seconds was used during Port-A-Cath insertion. 1 image/s document/s the proced ure.
== END ==
LOC: OR 06:07
PROVIDERS: ATTEND Surgery
DX: C85.91 Non-Hodgkin lymphoma, unspecified, lymph nodes of head, face, and neck (principal); J45.909 Unspecified asthma, uncomplicated; E78.5 Hyperlipidemia, unspecified; G40.909 Epilepsy, unspecified, not intractable, without status epilepticus; E11.42 Type 2 diabetes mellitus with diabetic polyneuropathy; E28.2 Polycystic ovarian syndrome; G89.29 Other chronic pain; R51.9 Headache, unspecified; M54.5 Low back pain; M17.0 Bilateral primary osteoarthritis of knee; M19.072 Primary osteoarthritis, left ankle and foot; M19.071 Primary osteoarthritis, right ankle and foot; M47.899 Other spondylosis, site unspecified; F31.9 Bipolar disorder, unspecified; G47.8 Other sleep disorders; K08.109 Complete loss of teeth, unspecified cause, unspecified class; E66.01 Morbid (severe) obesity due to excess calories; Z68.43 Body mass index [BMI] 50.0-59.9, adult; Z87.01 Personal history of pneumonia (recurrent); Z87.09 Personal history of other diseases of the respiratory system; Z87.39 Personal history of other diseases of the musculoskeletal system and connective tissue; Z90.89 Acquired absence of other organs; Z98.890 Other specified postprocedural states; Z98.51 Tubal ligation status; Z86.74 Personal history of sudden cardiac arrest; Z79.84 Long term (current) use of oral hypoglycemic drugs; Z79.899 Other long term (current) drug therapy; Z88.8 Allergy status to other drugs, medicaments and biological substances; Z88.0 Allergy status to penicillin; Z88.7 Allergy status to serum and vaccine; Z98.891 History of uterine scar from previous surgery; Z83.3 Family history of diabetes mellitus; Z82.5 Family history of asthma and other chronic lower respiratory diseases; Z80.2 Family history of malignant neoplasm of other respiratory and intrathoracic organs; Z82.0 Family history of epilepsy and other diseases of the nervous system; Z81.1 Family history of alcohol abuse and dependence
CPT/HCPCS: 81025; 77001; 36561; 76937; C1788; J2250; J1200; J1100; J2405; J0690; J2001; J3010; J1642; J1885; J2704; J1644

== ENCOUNTER 2020-07-27 07:29 | Day surgery (SDC) | payer OTHER ==
[2020-07-27] MEDS ORDERED: METHOTREXATE SODIUM (PF) 25 MG/ML 2 ML VIAL INTRATHECA ONE (08:00)
[2020-07-27 08:22] VITALS: TEMP 97.8
[2020-07-27] MEDS ORDERED: diazePAM 5 MG TAB PO STA (08:30)
[2020-07-27 09:05] LABS: Glucose,Whole Blood 187 mg/dL (75-99)
[2020-07-27] MEDS ORDERED: Acetaminophen-Codeine 300-30mg TAB PO PRN (10:21)
--- NOTE | 2020-07-27 11:34 | P.PCN ---
Date of Procedure: 07/27/20 Preoperative Diagnosis: Diffuse large B-cell lymphoma Postoperative Diagnosis: Diffuse large B cell lymphoma Procedure(s) Performed: Lumbar puncture with administration of prophylactic intrathecal chemotherapy Estimated Blood Loss (ml): 0 IV fluids (ml): 0 Pathology: other (Cerebral spinal fluid sent for flow cytometry and cytology) Condition: stable Disposition: same day Indications for Procedure: Diffuse large B-cell lymphoma of the head. Prophylactic intrathecal chemotherapy for high risk disease Description of Procedure: Interventional Radiologist performed lumbar puncture, removed of 5 mL of cerebrospinal fluid, sent for cytology and flow cytometry. Methotrexate double checked with Pharmacist. Using sterile technique 12.5 mg of methotrexate diluted with sterile, preservative-free normal saline to a total volume of 2.4 mL. Diluted solution was administered slowly over 3 minutes. Tubing and LP needle flushed with 2.5 mL of preservative-free, sterile normal saline in a latex free syringe. Lumbar needle access removed and placed in sharps container which was then placed into a chemotherapy bag for proper disposal. LP insertion site covered with a Band-Aid. Patient tolerated procedure well. Vital signs remained stable throughout procedure. Patient taken to recovery in stable condition.
[2020-07-27 18:08] VITALS: RESP 16
[2020-07-27 18:34] VITALS: BP 132/77; PULSE 78
--- NOTE | 2020-07-27 19:00 | FL ---
PROCEDURE: Lumbar puncture for intrathecal chemotherapy access. DATE: 07/27/2020 CLINICAL HISTORY: 44-year-old female C83.31, B-cell lymphoma COMPLICATIONS: None Total fluoroscopy time: 11 seconds. Total images: 1. The patient and the patient's vital signs were monitored by qualified independent radiology personnel . TECHNIQUE: The procedure and potential risks were explained to patient and an informed consent was obtained with teach back. Site and side was verified. A time out was performed. The patient was placed prone on the fluoroscopy table and the L3-L4 level was localized and the skin was marked and was prepped and draped in the usual sterile fashion. Lidocaine was used for local anesthesia. Utilizing fluoroscopic guidance a 22-gauge 5 inch spinal nee dle was placed through the skin and into the subarachnoid space. Approximately 5 mL of clear, colorless cerebral spinal fluid was obtained. Subsequently, oncology PEER COUNSELOR injected 2.5 mL of chemotherapy agent followed by a flush of the tubing wit h 2.5 mL sterile saline. The patient tolerated the procedure well and was sent back to the recovery room in satisfactory condi tion. The fluid was sent to the lab for analysis. The estimated blood loss was minimal. The patient's condition was unchanged following the procedure. IMPRESSION: Successful accumulation of 5 mL of clear CSF. Subsequent intrathecal injection of chemotherapy agent (by oncology PEER COUNSELOR) and flushing with sterile saline.
== END 2020-07-27 14:10 | disposition home or self-care (01) ==
LOC: RADPROMAIN 07:29
PROVIDERS: ATTEND Internal Medicine Hematology & Oncology
DX: Z51.11 Encounter for antineoplastic chemotherapy (principal); C83.31 Diffuse large B-cell lymphoma, lymph nodes of head, face, and neck; M19.90 Unspecified osteoarthritis, unspecified site; Z80.49 Family history of malignant neoplasm of other genital organs; J45.909 Unspecified asthma, uncomplicated; E78.5 Hyperlipidemia, unspecified; Z87.01 Personal history of pneumonia (recurrent); G40.909 Epilepsy, unspecified, not intractable, without status epilepticus; E11.42 Type 2 diabetes mellitus with diabetic polyneuropathy; E28.2 Polycystic ovarian syndrome; R51.9 Headache, unspecified; G89.29 Other chronic pain; M54.9 Dorsalgia, unspecified; M17.0 Bilateral primary osteoarthritis of knee; M19.072 Primary osteoarthritis, left ankle and foot; M19.071 Primary osteoarthritis, right ankle and foot; M47.819 Spondylosis without myelopathy or radiculopathy, site unspecified; M77.8 Other enthesopathies, not elsewhere classified; Z98.891 History of uterine scar from previous surgery; Z90.89 Acquired absence of other organs; Z98.51 Tubal ligation status; Z83.3 Family history of diabetes mellitus; Z83.1 Family history of other infectious and parasitic diseases; Z80.0 Family history of malignant neoplasm of digestive organs; Z82.0 Family history of epilepsy and other diseases of the nervous system; Z79.84 Long term (current) use of oral hypoglycemic drugs; Z79.899 Other long term (current) drug therapy; Z88.0 Allergy status to penicillin; Z88.7 Allergy status to serum and vaccine; Z88.8 Allergy status to other drugs, medicaments and biological substances
CPT/HCPCS: 88108; 96450; 77003; J2001; J9260; 62328

== ENCOUNTER 2020-08-17 08:08 | Day surgery (SDC) | payer OTHER ==
[~2020-08-17 08:08] MED LIST changes: -ACETAMINOPHEN TAB 500 MG TAB PO PRN; -DEXAMETHASONE SOD PHOSPHATE 4 MG/ML 1 ML VIAL IV ONE; -HEPARIN SODIUM,PORCINE/PF 5,000 UNIT/0.5 ML SYRINGE SQ PRN; -HYDROmorphone 0.5 MG/0.5 ML SYRINGE IVP PRN; -KETOROLAC 15 MG/ML 1 ML VIAL IVP ONE; -KETOROLAC 15 MG/ML 1 ML VIAL ONE; -LIDOCAINE 1% INJ 10MG/ML (20 ML MDV) SQ ONE; +METHOTREXATE SODIUM (PF) 25 MG/ML 2 ML VIAL INTRATHECA ONE; -MIDAZOLAM 2 MG/2 ML VIAL IV PRN; -MIDAZOLAM 2 MG/2 ML VIAL ONE; -NALOXONE 0.4 MG/ML 1 ML VIAL IV PRN; -ONDANSETRON 4 MG/2 ML VIAL IVP ONE; -PROPOFOL 10 MG/ML 20 ML VIAL IV ONE; -Pre Op ABX Message 1 EACH MISC MISCELLANE ONE; -SCOPOLAMINE 1.5MG/72HR PATCH TRANSDERM ONE; -SODIUM CHLORIDE 0.9% 100 ML with ceFAZolin 2,000 MG IV ONE; -diphenhydrAMINE 50 MG/ML 1 ML VIAL ONE; -fentaNYL (PF) 50 MCG/ML 2 ML AMP ONE
[2020-08-17 08:37] VITALS: TEMP 98.3
[2020-08-17 08:46] LABS: Glucose,Whole Blood 180 mg/dL (75-99)
[2020-08-17] MEDS ORDERED: diazePAM 5 MG TAB PO STA (08:54)
[2020-08-17 11:01] VITALS: RESP 16
[2020-08-17 12:25] VITALS: BP 125/62; PULSE 90
--- NOTE | 2020-08-17 16:11 | FL ---
EXAMINATION TYPE: FL guided lumbar puncture LP DATE OF EXAM: 08/17/2020 CLINICAL HISTORY: Lymphoma TECHNIQUE: Fluoroscopic assisted lumbar puncture. COMPARISON: Prior lumbar puncture July 27, 2020. FINDINGS: Fluoroscopic guidance was provided during lumbar puncture procedure performed by myself. A total of 72 seconds of fluoroscopic time was utilized during the procedure and 0 spot images are sa david. The procedure and potential risks were explained to patient and an informed consent was obtained with teach back. A time out was performed. The patient was placed prone on the fluoroscopy table and the L2-L3 and then L3-L4 levels were locali zed and the skin was marked and was prepped and draped in the usual sterile fashion. Lidocaine was used for local anesthesia. Utilizing fluoroscopic guidance a 22-gauge spinal needle was placed through the skin and into the subarachnoid space. First attempt at L2-L3 level despite patient having positive symptoms of sensation into the bilateral lower extremities had poor return of CSF, roughly 1 cc of blood-tinged CSF. At this point needle was withdrawn and subsequent paraspinal approach at L3-L4 level again was successful in patient having p ositive symptoms into bilateral lower extremities. There is still poor flow of CSF but eventual accum ulation of roughly 3 to 4 cc of fairly clear CSF with slight blood tinge was prominent than prior lev el. S Subsequently, oncology BILLIARD PARLOR MANAGER injected 2.5 mL of chemotherapy agent followed by a flush of the tubing wit h 2.5 mL sterile saline. The patient tolerated the procedure well and was sent back to the recovery room in satisfactory condi tion. The fluid was sent to the lab for analysis. The estimated blood loss was minimal. The patient's condition was unchanged following the procedure. Vital signs were monitored before during and after procedure. There were stable and satisfactory. Neris troncoso was discharged home after short stay for monitoring after the procedure in the hospital. IMPRESSION: Successful access into the lumbar spinal canal for subsequent intrathecal injection of chemotherapy a gent (by oncology BILLIARD PARLOR MANAGER) and flushing with sterile saline.
--- NOTE | 2020-08-20 11:39 | P.PCN ---
Date of Procedure: 08/17/20 Preoperative Diagnosis: DLBCL, high risk for CSF involvement, prophylactic IT chemo Postoperative Diagnosis: DLBCL, high risk for CSF involvement, prophylactic IT chemo Procedure(s) Performed: LP with administration of IT methotrexate Estimated Blood Loss (ml): 0 IV fluids (ml): 0 Pathology: other (Cytology and flow cytometry) Condition: stable Indications for Procedure: DLBCL of the face/neck, high risk for SHED HAND involvement Description of Procedure: Fluoroscopy guided LP performed by Interventional Radiologist. 4cc CSF removed. 12mg/2.4cc of diluted sterile, preservative free methotrexate (verified with Pharmacist and OCN RN) in a latex free syringe was instilled over 3 min. Tubing flushed with 1.5cc of preservative free NS in a latex free syringe to replace CSF removed. IR removed LP needle placed in sharps container, all materials gathered and placed in chemo bag and disposed of in proper container. Pt denied TORIBIO, nausea post procedure. She was taken to recovery in stable condition.
== END 2020-08-17 12:40 | disposition home or self-care (01) ==
LOC: RADPROMAIN 08:08
PROVIDERS: ATTEND Internal Medicine Hematology & Oncology
DX: C83.31 Diffuse large B-cell lymphoma, lymph nodes of head, face, and neck (principal)
CPT/HCPCS: 88108; 62328; J9260

== ENCOUNTER → 2020-08-28 | Outpatient (CLI) | payer OTHER ==
--- NOTE | 2020-08-31 08:26 | PE ---
EXAMINATION TYPE: PET CT fusion skull to thigh DATE OF EXAM: 08/28/2020 COMPARISON: Outside neck MRI May 18, 2020 HISTORY: Squamous cell cancer top of nose February 2018 , lymphoma on the paranasal sinuses diagnos ed January 2020 completed chemotherapy August 18, 2020 TECHNIQUE: Following the intravenous administration of 12.10 mCi of F-18 FDG, whole body images are performed from the skull base to the midthigh. Images are reviewed on the computer in the coronal, a xial, and sagittal planes. Reconstructed rotating images are created on independent workstation and reviewed on the computer. A localization and attenuation correction CT is performed in conjunction with the PET scan. Blood glucose level equals 173. SCAN: Initial Scan FINDINGS: Exam is suboptimal due to patient's large body habitus. Mean SUV mediastinum : 1.02 Mean SUV liver: 2.59 SKULL BASE AND NECK: No areas of abnormal hypermetabolic uptake. Paranasal sinuses are grossly clear . No abnormal hypermetabolic corresponding to the enhancing large mass occupying the nasopharynx show s marked improvement near axial image 23. No suspicious hypermetabolic uptake at this level. CHEST, MEDIASTINUM, AND HILAR REGION: No areas of abnormal hypermetabolic uptake. ABDOMEN AND PELVIS: Liver size is upper limits of normal. Spleen not enlarged. No abnormal hypermetab olic uptake. Normal excretion. Some nonspecific bowel uptake. OSSEOUS STRUCTURES: Mild diffuse uptake presumed reactive. No abnormal hypermetabolic uptake. OTHER CT: Right internal jugular Mediport catheter terminating in SVC. Anteverted uterus with tubal ligation clips along the periphery. IMPRESSION: Suboptimal study due to body habitus. No areas of abnormal hypermetabolic uptake to sugge st active local or metastatic malignancy.
== END | disposition home or self-care (01) ==
LOC: RADPETMAIN 08:39
PROVIDERS: ATTEND Internal Medicine Hematology & Oncology
DX: Z85.72 Personal history of non-Hodgkin lymphomas (principal)
CPT/HCPCS: 78815; A9552

== ENCOUNTER 2020-09-07 08:16 | Day surgery (SDC) | payer OTHER ==
[2020-09-07] MEDS ORDERED: diazePAM 5 MG TAB PO STA (08:18)
[2020-09-07 08:30] VITALS: RESP 20; TEMP 97.8
[2020-09-07 08:46] LABS: Glucose,Whole Blood 191 mg/dL (75-99)
[2020-09-07 11:26] VITALS: BP 118/68; PULSE 84
--- NOTE | 2020-09-08 07:15 | FL ---
EXAMINATION TYPE: FL guided lumbar puncture LP DATE OF EXAM: 09/07/2020 CLINICAL HISTORY: Lymphoma. TECHNIQUE: Fluoroscopic assisted lumbar puncture for intrathecal chemotherapy. COMPARISON: Prior lumbar puncture July 27, 2020. FINDINGS: Fluoroscopic guidance was provided during lumbar puncture procedure performed by myself. A total of 175 seconds of fluoroscopic time was utilized during the procedure and 4 spot images are s aved. The procedure and potential risks were explained to patient and an informed consent was obtained with teach back. A time out was performed. The patient was placed prone on the fluoroscopy table and the L4-L5 and then L3-L4 levels were locali zed after failure at L4-L5 level. The skin was marked and was prepped and draped in the usual sterile fashion. Lidocaine was used for local anesthesia. Utilizing fluoroscopic guidance a 22-gauge spinal needle was placed through the skin and into the subarachnoid space. First attempt was unsuccessful. There is subsequent success at L3-L4 level using paraspinal approach . There is not great flow of CSF but eventual accumulation of roughly 4 cc of fairly clear CSF . Subsequently, oncology HOME MANAGEMENT SUPERVISOR injected 2.5 mL of chemotherapy agent followed by a flush of the tubing wit h 2.5 mL sterile saline. The patient tolerated the procedure well and was sent back to the recovery room in satisfactory condi tion. The estimated blood loss was minimal. The patient's condition was unchanged following the procedure. Vital signs were monitored before during and after procedure. There were stable and satisfactory. Neris ient was discharged home after short stay for monitoring after the procedure in the hospital. IMPRESSION: Successful access into the lumbar spinal canal for subsequent intrathecal injection of chemotherapy a gent (by oncology HOME MANAGEMENT SUPERVISOR) and flushing with sterile saline.
--- NOTE | 2020-09-10 09:15 | P.PCN ---
Date of Procedure: 09/07/20 Preoperative Diagnosis: DLBCL Postoperative Diagnosis: DLBCL Procedure(s) Performed: LP with administration of intrathecal methotrexate Estimated Blood Loss (ml): 0 IV fluids (ml): 0 Urine output (ml): 0 Pathology: other (flow cytometry and cytology) Condition: stable Disposition: same day Indications for Procedure: MOLD INJECTOR prophylaxis for DLBCL of the face/sinus Description of Procedure: LP performed by Interventional Radiologist. 4cc CSF removed. Medication checks with Pharmacist and OCN certified RN. 12mg (2.3cc) sterile, preservative free methotrexate diluted with sterile NS was instilled over 3 min. 1.7cc sterile NS used to flush line, for a total of 4cc of fluid returned to intrathecal space. Spinal needle removed by Radiologist. Specimen sent for flow and cytology. Pt tolerated well.
== END 2020-09-07 11:33 | disposition home or self-care (01) ==
LOC: RADPROMAIN 08:16
PROVIDERS: ATTEND Internal Medicine Hematology & Oncology
DX: C83.38 Diffuse large B-cell lymphoma, lymph nodes of multiple sites (principal)
CPT/HCPCS: 88108; 62328; J2001; J9260

== ENCOUNTER → 2020-09-09 | Outpatient (CLI) | payer OTHER ==
--- NOTE | 2020-09-09 12:16 | US ---
EXAMINATION TYPE: US abdomen complete DATE OF EXAM: 09/09/2020 COMPARISON: Head CT 08/28/2020 CLINICAL HISTORY: R10.11 right upper quadrant pain.. Pt states ABD pain, more on right side EXAM MEASUREMENTS: Liver Length: 20.5 cm This is suggestive of hepatomegaly. Gallbladder Wall: 0.2 cm CBD: 0.4 cm Spleen: 11.1 cm Right Kidney: 13.2 x 5.0 x 6.1 cm Left Kidney: 12.0 x 5.8 x 5.0 cm Severely, morbidly obese pt, very difficult to scan Pancreas: Obscured by bowel gas Liver: Enlarged, difficult to penetrate/visualize there is apparent diffuse fatty infiltration of l iver. Gallbladder: wnl Evidence for sonographic Mayer's sign: No CBD: Visualized portions appeared wnl Spleen: Visualized portions appeared wnl Right Kidney: Visualized portions appeared wnl Left Kidney: Visualized portions appeared wnl Upper IVC: Unable to visualize due to enlarged liver and large pt body habitus Abd Aorta: Not seen due to patient's body habitus and by overlying bowel gas. The patient is a morbidly obese causing limited evaluation on sonography. IMPRESSION: 1. Hepatomegaly. Diffuse fatty infiltration of liver. 2. Severely morbidly obese patient is difficult to sonographically evaluate causing limited study. No gallstones. Unable to visualize the abdominal aorta and IVC.
== END | disposition home or self-care (01) ==
LOC: RADUSWWP 10:18
PROVIDERS: ATTEND Family Medicine
DX: K76.0 Fatty (change of) liver, not elsewhere classified (principal); E66.01 Morbid (severe) obesity due to excess calories; R16.0 Hepatomegaly, not elsewhere classified
CPT/HCPCS: 76700

== ENCOUNTER 2020-10-07 12:34 | Emergency (ER) | payer OTHER ==
[2020-10-07 12:49] VITALS: BP 135/80; PULSE 99; RESP 20; TEMP 97.9
[2020-10-07 13:10] LABS: Appearance,Urine Cloudy (Clear); Bacteria,Urine Occasional /hpf; Bilirubin,Urine Negative (Negative); Blood,Urine Large (Negative); Color,Urine Yellow; Glucose,Urine (UA) 3+ (Negative); Ketones,Urine Trace (Negative); Leukocyte Esterase,Urine Moderate (Negative); Mucus,Urine Rare /hpf; Nitrite,Urine Negative (Negative); Protein,Urine 1+ (Negative); RBC,Urine 57 /hpf (0-5); Specific Gravity,Urine 1.028 (1.001-1.035); Squamous Epithelial Cell,Urine 7 /hpf (0-4); Urobilinogen,Urine <2.0 mg/dL (<2.0); WBC,Urine 5 /hpf (0-5)
[2020-10-07] MEDS ORDERED: SODIUM CHLORIDE 0.9% 1,000 ML IV STA (13:49)
[2020-10-07] MEDS ORDERED: KETOROLAC 15 MG/ML 1 ML VIAL IVP STA (13:49)
[2020-10-07] MEDS ORDERED: ONDANSETRON 4 MG/2 ML VIAL IVP STA (13:49)
[2020-10-07 14:31] LABS: Basophils # (A) 0.1 k/uL (0-0.2); Basophils % (A) 1 %; Eosinophils # (A) 0.5 k/uL (0-0.7); Eosinophils % (A) 5 %; HCT 37.2 % (34.0-46.0); HGB 12.6 gm/dL (11.4-16.0); Lymphocytes # (A) 0.8 k/uL (1.0-4.8); Lymphocytes % (A) 8 %; MCH 30.7 pg (25.0-35.0); MCHC 33.8 g/dL (31.0-37.0); MCV 90.8 fL (80.0-100.0); Mean Platelet Volume 6.4; Monocytes # (A) 0.8 k/uL (0-1.0); Monocytes % (A) 8 %; Neutrophils # (A) 7.7 k/uL (1.3-7.7); Neutrophils % (A) 77 %; Platelet Count 366 k/uL (150-450); RBC 4.09 m/uL (3.80-5.40); RDW 14.8 % (11.5-15.5)
--- NOTE | 2020-10-07 14:48 | ED ---
General Adult HPI - General Chief complaint: Abdominal Pain Stated complaint: poss kidney stone Time Seen by Provider: 10/07/20 13:26 Source: patient Mode of arrival: ambulatory Limitations: no limitations - History of Present Illness Initial comments: Patient is a 45-year-old female with history of lymphoma, diabetes, presenting to emergency Department with complaints of sudden onset of left-sided flank pain that started about 8 AM this morning. She states she can feel it in her left flank area with some radiation towards her left groin. She states she normally has back pain when she wakes up but this feels higher and feels much different. She does have history kidney stones in the past and this does feel similar. She states she is also having trouble urinating, she has the urge but not much comes out. No hematuria that she notices. She denies any fevers or chills. She denies any other abdominal pain. There is some mild nausea but no vomiting, no diarrhea. She has no further complaints. Upon arrival to the ER her vitals are stable. - Related Data Home Medications Medication Instructions Recorded Confirmed Atorvastatin [Lipitor] 40 mg PO HS 07/02/20 10/07/20 Cyanocobalamin (Vitamin B-12) 5,000 mcg PO DAILY 07/02/20 10/07/20 [Vitamin B-12] Ergocalciferol [Vitamin D2 (1250 1,250 mcg PO MO 07/02/20 10/07/20 Mcg = 50027 Iu)] Gabapentin [Neurontin] 300 mg PO DAILY 07/02/20 10/07/20 Multivitamins, Thera [Multivitamin 1 tab PO DAILY 07/02/20 10/07/20 (formulary)] Fexofenadine HCl [Cyndee Allergy] 180 mg PO DAILY 10/07/20 10/07/20 Previous Rx's Medication Instructions Recorded metFORMIN HCL [Glucophage] 1,000 mg PO BID-W/MEALS #60 tab 05/28/17 Ketorolac [Toradol] 10 mg PO Q8HR #15 tab 10/07/20 Allergies Allergy/AdvReac Type Severity Reaction Status Date / Time montelukast [From Singulair] Allergy Rash/Hives Verified 10/07/20 13:52 Penicillins Allergy Unknown Verified 10/07/20 13:52 Childhood Tetanus Vaccines and Toxoid Allergy Unknown Verified 10/07/20 13:52 [Tetanus Vaccines & Toxoid] Review of Systems ROS Statement: Those systems with pertinent positive or pertinent negative responses have been documented in the HPI. ROS Other: All systems not noted in ROS Statement are negative. Past Medical History Past Medical History: Asthma, Diabetes Mellitus, Hyperlipidemia, Pneumonia, Seizure Disorder Additional Past Medical History / Comment(s): Lymphoma both maxillary sinuses diagnosed approximately 3 months ago/pt states the plan is to be treated with chemotherapy and she is to have a port placed on Monday, 2020, NIDDM type II, neuropathy bilateral feet, bronchitis, PCOS, past epilepsy with last seizure 25 yrs ago, chronic headaches and chronic low back pain, arthritis bilateral knnes/feet/back, tendonitis bilateral elbows. History of Any Multi-Drug Resistant Organisms: None Reported Past Surgical History: Adenoidectomy, Section, Orthopedic Surgery, Ton sillectomy, Tubal Ligation Additional Past Surgical History / Comment(s): sinus biopsy, Age 16-T&A with sinus scraped and used cocaine/pt accidentally was overdosed and arrested twice, L knee ACL removed, wisdom teeth extractions. port inserted Past Anesthesia/Blood Transfusion Reactions: No Reported Reaction Past Psychological History: Bipolar Smoking Status: Never smoker Past Alcohol Use History: Rare Past Drug Use History: None Reported - Past Family History Mother Family Medical History: Diabetes Mellitus Additional Family Medical History / Comment(s): Mother of covid pneumonia. Father Family Medical History: Asthma, Cancer, Seizure Disorder Additional Family Medical History / Comment(s): Father of laryngeal cancer. He was smoker. General Exam - General Exam Comments Initial Comments: GENERAL: Patient is well-developed and well-nourished. Patient is nontoxic and in mild distress. HEAD: Atraumatic, normocephalic. EYES: Pupils equal round and reactive to light, extraocular movements intact, sclera anicteric, conjunctiva are normal. Eyelids were unremarkable. ENT: TMs normal, nares patent, oropharynx clear without exudates. Moist mucous membranes. NECK: Normal range of motion, supple without lymphadenopathy or JVD. LUNGS: Unlabored respirations. Breath sounds clear to auscultation bilaterally and equal. No wheezes rales or rhonchi. HEART: Regular rate and rhythm without murmurs, rubs or gallops. ABDOMEN: Soft, nontender, normoactive bowel sounds. No guarding, no rebound. No masses appreciated. Mild left flank pain on palpation. : Deferred MUSCULOSKELETAL: Normal extremities with adequate strength and normal range of motion, no pitting or edema. No clubbing or cyanosis. NEUROLOGICAL: Patient is alert and oriented x 3. Motor and sensory are also intact. Cranial nerves II through XII grossly intact. Symmetrical smile. Normal speech, normal gait. PSYCH: Normal mood, normal affect. SKIN: Warm, Dry, normal turgor, no rashes or lesions noted. Limitations: no limitations Course Vital Signs 10/07/20 12:43 Temperature 97.9 F Pulse Rate 99 Respiratory 20 Rate Blood Pressure 135/80 O2 Sat by Pulse 97 Oximetry Medical Decision Making - Medical Decision Making Patient is a 45-year-old female with history of lymphoma, diabetes, presenting with acute onset of left flank pain about 8 PM this morning. She does have some radiation towards her left groin. Her vitals are stable, no fevers. Labs show a normal white count, urine has hematuria, occasional bacteria, hCG is not detected. CT shows an obstructing 0.8 cm ureteral pelvic junction stone on the left with mild left hydronephrosis. She was given fluids, Toradol, reports improvement in her symptoms, she is comfortable. Discussed these findings with her. She needs a follow-up with urology. Referral was given. I also gave her some tablets of Toradol go home with. She states she does have nausea medication at home. Return parameters were discussed with the patient she verbalized understanding. She is stable for discharge case discussed with Dr. Bermudez. - Lab Data Result diagrams: 10/07/20 14:15 10/07/20 14:15 Lab Results 10/07/20 10/07/20 10/07/20 Range/Units 12:56 12:56 14:15 WBC 10.0 (3.8-10.6) k/uL RBC 4.09 (3.80-5.40) m/uL Hgb 12.6 (11.4-16.0) gm/dL Hct 37.2 (34.0-46.0) % MCV 90.8 (80.0-100.0) fL MCH 30.7 (25.0-35.0) pg MCHC 33.8 (31.0-37.0) g/dL RDW 14.8 (11.5-15.5) % Plt Count 366 (150-450) k/uL MPV 6.4 Neutrophils % 77 % Lymphocytes % 8 % Monocytes % 8 % Eosinophils % 5 % Basophils % 1 % Neutrophils # 7.7 (1.3-7.7) k/uL Lymphocytes # 0.8 L (1.0-4.8) k/uL Monocytes # 0.8 (0-1.0) k/uL Eosinophils # 0.5 (0-0.7) k/uL Basophils # 0.1 (0-0.2) k/uL Sodium (137-145) mmol/L Potassium (3.5-5.1) mmol/L Chloride (98-107) mmol/L Carbon Dioxide (22-30) mmol/L Anion Gap mmol/L BUN (7-17) mg/dL Creatinine (0.52-1.04) mg/dL Est GFR (CKD-EPI)AfAm (>60 ml/min/1.73 sqM) Est GFR (CKD-EPI)NonAf (>60 ml/min/1.73 sqM) Glucose (74-99) mg/dL Calcium (8.4-10.2) mg/dL Total Bilirubin (0.2-1.3) mg/dL AST (14-36) U/L ALT (4-34) U/L Alkaline Phosphatase (38-126) U/L Total Protein (6.3-8.2) g/dL Albumin (3.5-5.0) g/dL Urine Color Yellow Urine Appearance Cloudy H (Clear) Urine pH 5.0 (5.0-8.0) Ur Specific Grimsley 1.028 (1.001-1.035) Urine Protein 1+ H (Negative) Urine Glucose (UA) 3+ H (Negative) Urine Ketones Trace H (Negative) Urine Blood Large H (Negative) Urine Nitrite Negative (Negative) Urine Bilirubin Negative (Negative) Urine Urobilinogen <2.0 (<2.0) mg/dL Ur Leukocyte Esterase Moderate H (Negative) Urine RBC 57 H (0-5) /hpf Urine WBC 5 (0-5) /hpf Ur Squamous Epith Cells 7 H (0-4) /hpf Urine Bacteria Occasional H (None) /hpf Urine Mucus Rare H (None) /hpf Urine HCG, Qual Not Detected (Not Detectd) 10/07/20 Range/Units 14:15 WBC (3.8-10.6) k/uL RBC (3.80-5.40) m/uL Hgb (11.4-16.0) gm/dL Hct (34.0-46.0) % MCV (80.0-100.0) fL MCH (25.0-35.0) pg MCHC (31.0-37.0) g/dL RDW (11.5-15.5) % Plt Count (150-450) k/uL MPV Neutrophils % % Lymphocytes % % Monocytes % % Eosinophils % % Basophils % % Neutrophils # (1.3-7.7) k/uL Lymphocytes # (1.0-4.8) k/uL Monocytes # (0-1.0) k/uL Eosinophils # (0-0.7) k/uL Basophils # (0-0.2) k/uL Sodium 141 (137-145) mmol/L Potassium 4.6 (3.5-5.1) mmol/L Chloride 103 (98-107) mmol/L Carbon Dioxide 27 (22-30) mmol/L Anion Gap 11 mmol/L BUN 15 (7-17) mg/dL Creatinine 0.58 (0.52-1.04) mg/dL Est GFR (CKD-EPI)AfAm >90 (>60 ml/min/1.73 sqM) Est GFR (CKD-EPI)NonAf >90 (>60 ml/min/1.73 sqM) Glucose 171 H (74-99) mg/dL Calcium 9.7 (8.4-10.2) mg/dL Total Bilirubin 0.7 (0.2-1.3) mg/dL AST 49 H (14-36) U/L ALT 49 H (4-34) U/L Alkaline Phosphatase 56 (38-126) U/L Total Protein 7.2 (6.3-8.2) g/dL Albumin 4.4 (3.5-5.0) g/dL Urine Color Urine Appearance (Clear) Urine pH (5.0-8.0) Ur Specific Grimsley (1.001-1.035) Urine Protein (Negative) Urine Glucose (UA) (Negative) Urine Ketones (Negative) Urine Blood (Negative) Urine Nitrite (Negative) Urine Bilirubin (Negative) Urine Urobilinogen (<2.0) mg/dL Ur Leukocyte Esterase (Negative) Urine RBC (0-5) /hpf Urine WBC (0-5) /hpf Ur Squamous Epith Cells (0-4) /hpf Urine Bacteria (None) /hpf Urine Mucus (None) /hpf Urine HCG, Qual (Not Detectd) Disposition Clinical Impression: Left ureteral calculus, Hydronephrosis, left Disposition: HOME SELF-CARE Condition: Stable Instructions (If sedation given, give patient instructions): Kidney Stones (ED) Additional Instructions: Please return to the Emergency Department if symptoms worsen or any other concerns. May take Toradol for pain relief. Follow up with urologist's office today. Prescriptions: Ketorolac [Toradol] 10 mg PO Q8HR #15 tab Is patient prescribed a controlled substance at d/c from ED?: No Referrals: Willie Horan [Primary Care Provider] - 1-2 days Wes Parson MD [STAFF PHYSICIAN] - 1-2 days Time of Disposition: 15:56
[2020-10-07 15:03] LABS: ALT 49 U/L (4-34); AST 49 U/L (14-36); African American GFR (CKD) >90 (>60 ml/min/1.73 sqM); Albumin 4.4 g/dL (3.5-5.0); Alkaline Phosphatase 56 U/L (38-126); Anion Gap 11 mmol/L; Blood Urea Nitrogen 15 mg/dL (7-17); Calcium 9.7 mg/dL (8.4-10.2); Carbon Dioxide 27 mmol/L (22-30); Chloride 103 mmol/L (98-107); Glucose 171 mg/dL (74-99); Non-African American GFR(CKD) >90 (>60 ml/min/1.73 sqM); Sodium 141 mmol/L (137-145); Total Bilirubin 0.7 mg/dL (0.2-1.3); Total Protein 7.2 g/dL (6.3-8.2)
--- NOTE | 2020-10-07 15:04 | CT ---
EXAMINATION TYPE: CT abdomen pelvis wo con DATE OF EXAM: 10/07/2020 COMPARISON: 08/28/2020 PET/CT INDICATION: Left flank pain since 0800 today. Renal stone DLP: 1776.4 mGycm, Automated exposure control for dose reduction was used. CONTRAST: 0 mL of Isovue 300. Study performed without Oral Contrast TECHNIQUE: Axial images were obtained from above the diaphragm to the pubic rami in the axial plane a t 5 mm thick sections. Reconstructed images are reviewed on the computer in the coronal plane. FINDINGS: Limited CT sections are obtained the lung bases. The lung bases are clear. CT ABDOMEN: Liver: Hepatomegaly is present Spleen: Normal Pancreas: Normal Adrenal glands: The adrenal glands are normal. Gallbladder: Normal Kidneys: No masses are evident. There is some mild left hydronephrosis and hydroureter. At the ureter opelvic junction there is an obstructing 0.8 cm calcification. Series 201 image 58. No cysts are pres ent. No suspicious renal stones. Aorta: Vascular calcification is within the aorta. Inferior vena cava: Normal. CT PELVIS: Loops of bowel within the abdomen and pelvis are normal. Diverticulosis without acute diverticulitis . There are loops of bowel which are incompletely distended or lack oral contrast limiting their ev aluation. Appendix: Normal as visualized. Urinary bladder: Normal. Genitourinary structures: Uterus is normal. Adnexal regions are normal. Osseous structures: No suspicious lytic or sclerotic lesions. IMPRESSIONS: 1. Obstructing 0.8 cm ureteral pelvic junction stone on the left with mild left hydronephrosis.
[2020-10-07 15:05] LABS: Potassium 4.6 mmol/L (3.5-5.1)
== END 2020-10-07 16:05 | disposition home or self-care (01) ==
LOC: EC 12:34
DX: N13.2 Hydronephrosis with renal and ureteral calculous obstruction (principal); J45.909 Unspecified asthma, uncomplicated; E78.5 Hyperlipidemia, unspecified; E11.40 Type 2 diabetes mellitus with diabetic neuropathy, unspecified; G40.909 Epilepsy, unspecified, not intractable, without status epilepticus; F31.9 Bipolar disorder, unspecified; Z79.84 Long term (current) use of oral hypoglycemic drugs; Z88.0 Allergy status to penicillin
CPT/HCPCS: 36415; 80053; 85025; 81001; 81025; 74176; 99284; 96374; 96375; 96361; J2405; J1885

== ENCOUNTER → 2020-10-16 | Outpatient (CLI) | payer OTHER ==
--- NOTE | 2020-10-16 11:20 | XR ---
EXAMINATION TYPE: XR KUB DATE OF EXAM: 10/16/2020 10:32 AM CLINICAL HISTORY: Left renal calculus TECHNIQUE: Single supine KUB image of the abdomen is obtained. COMPARISON: 10/07/2020 CT abdomen pelvis. FINDINGS:: Gas obscure visualization of the renal contours. No definite renal calculi.. A left ureter al calculus at L4 level measuring 1.1 cm. Probable calcified pelvic phleboliths in the pelvis. Bilate ral tubal ligation clips. Degenerative changes of the lumbar spine and hips. IMPRESSION: 1. No definite renal calculi. Stool and gas obscure visualization of the renal contours.. 2. Left ureteral calculus at L4 level measuring 1.1 cm. This is compared to the prior CT from 10/08/19 21 and has distally progressed.
== END | disposition home or self-care (01) ==
LOC: RADXRMAIN 10:13
PROVIDERS: ATTEND Urology
DX: N20.1 Calculus of ureter (principal)
CPT/HCPCS: 74018

== ENCOUNTER → 2020-11-27 | Outpatient (CLI) | payer OTHER ==
--- NOTE | 2020-11-30 06:20 | PE ---
EXAMINATION TYPE: PET CT fusion skull to thigh DATE OF EXAM: 11/27/2020 COMPARISON: PET CT August 28, 2020. CT abdomen and pelvis October 07, 2020 HISTORY: Lymphoma progress study. 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 Images are reviewed on the computer in the coronal, ax ial, and sagittal planes. Reconstructed rotating images are created on independent workstation and r eviewed on the computer. A localization and attenuation correction CT is performed in conjunction w ith the PET scan. Blood glucose equals 160. SCAN: Subsequent Scan FINDINGS: Exam is again noted slightly suboptimal due to patient's large body habitus. Mean SUV mediastinum : 0.8 Mean SUV liver: 2.35 SKULL BASE AND NECK: No areas of abnormal hypermetabolic uptake. Paranasal sinuses are grossly clear . No abnormal hypermetabolic corresponding to the enhancing large mass occupying the nasopharynx on o riginal study now shows no new mass or suspicious hypermetabolic uptake at this level. CHEST, MEDIASTINUM, AND HILAR REGION: No new areas of abnormal hypermetabolic uptake. ABDOMEN AND PELVIS: Liver size is stable and upper limits of normal with diffuse fatty infiltration. Spleen not enlarged. No new abnormal hypermetabolic uptake. Normal excretion. Increased nonspecific b owel uptake. OSSEOUS STRUCTURES: No new abnormal hypermetabolic uptake. OTHER CT: Stable right internal jugular Mediport catheter . Anteverted uterus with tubal ligation clips along the periphery is redemonstrated. IMPRESSION: Slightly suboptimal study. No new areas of abnormal hypermetabolic uptake to suggest acti ve local neoplastic recurrence or metastatic malignancy.
== END | disposition home or self-care (01) ==
LOC: RADPETMAIN 12:01
PROVIDERS: ATTEND Internal Medicine Hematology & Oncology
DX: Z85.72 Personal history of non-Hodgkin lymphomas (principal)
CPT/HCPCS: 78815; A9552

== ENCOUNTER → 2020-12-01 | Outpatient (CLI) | payer OTHER ==
--- NOTE | 2020-12-01 08:41 | XR ---
EXAMINATION TYPE: XR KUB DATE OF EXAM: 12/01/2020 8:30 AM CLINICAL HISTORY: History of renal stones with lower abdominal pain, lithotripsy was performed October 15. TECHNIQUE: Two supine KUB images of the abdomen are obtained. COMPARISON: CT abdomen and pelvis October 07, 2020. Abdominal x-ray October 16, 2020. FINDINGS: Scattered gas is seen in non-distended small bowel loops. Gas and fecal material is seen in non-distended colon. Tubal ligation clips in the pelvis are redemonstrated. No new nephrolithiasis c learly seen. Prior visualized left ureter calculus is not identified. Multilevel spurring in the thor acolumbar spine redemonstrated. IMPRESSION: As above.
== END | disposition home or self-care (01) ==
LOC: RADXRMAIN 08:17
PROVIDERS: ATTEND Urology
DX: Z87.442 Personal history of urinary calculi (principal)
CPT/HCPCS: 74018

== ENCOUNTER → 2021-04-01 | Outpatient (CLI) | payer OTHER ==
--- NOTE | 2021-04-01 12:44 | XR ---
EXAMINATION TYPE: XR shoulder complete 3 views RT, XR knee complete 3 views LT DATE OF EXAM: 04/01/2021 Comparison: None Clinical History: 45-year-old female M25.511 R shoulder pain, M25.562, left knee pain. Findings: Right shoulder: Moderate degenerative change at the AC joint. Some inferior spurring is present. Subacromial space is preserved. Mild bony spurring at the greater tuberosity. No tendinous or bursal calcifications. No a cute fracture, subluxation, dislocation. Right anterior chest wall injection port partially visualiz ed. Left knee: There is tricompartmental degenerative spurring. Moderate narrowing of cartilage and joint space in t he medial compartment and mild lateral compartment. No significant joint effusion. Extensor mechanism appears intact. No acute fracture, subluxation, dislocation. Impression: 1. Right shoulder: Moderate AC joint OA. Some bony changes may reflect chronic rotator cuff tendinopa thy. No acute osseous abnormality seen. 2. Left knee: Tricompartmental osteoarthrosis, at least moderate in the medial compartment. No acute osseous abnormality seen.
== END | disposition home or self-care (01) ==
LOC: RADXRMAIN 09:03
PROVIDERS: ATTEND Family Medicine
DX: M19.011 Primary osteoarthritis, right shoulder (principal); M17.12 Unilateral primary osteoarthritis, left knee

== ENCOUNTER → 2021-06-03 | Outpatient (CLI) | payer OTHER ==
--- NOTE | 2021-06-03 09:59 | XR ---
EXAMINATION TYPE: XR foot limited RT DATE OF EXAM: 06/03/2021 COMPARISON: NONE HISTORY: 45-year-old female L84 TECHNIQUE: 2 views FINDINGS: Large os trigonum. Degenerative dorsal midfoot bony spurring. Small posterior and plantar calcaneal s purs. Some chronic fragmentation at the base of the fifth metatarsal. Corticated ossific density jacqueline uring 9 mm anterior to the distal fibula probably reflecting prior lateral ligamentous injury at the ankle. No acute fracture, subluxation, dislocation seen. There is a bony protuberance seen on the AP view of the foot along the hindfoot region that may correspond to the patient's complaint of a lump. IMPRESSION: 1. Suspect old injuries to the ATFL and probably chronic insertional peroneus brevis tendinopathy. 2. Dorsal midfoot degenerative spurring. 3. Bony protuberance medial aspect of the hindfoot seen on the AP view, possible prominent spurring r elating to subtalar joint OA. Consider CT for further detailed bony assessment if indicated. 4. No acute osseous abnormality seen.
== END | disposition home or self-care (01) ==
LOC: RADXRMAIN 09:06
PROVIDERS: ATTEND Family Medicine
DX: M19.071 Primary osteoarthritis, right ankle and foot (principal)

== ENCOUNTER → 2021-07-02 | Outpatient (CLI) | payer OTHER ==
--- NOTE | 2021-07-03 07:56 | PE ---
EXAMINATION TYPE: PET CT fusion skull to thigh DATE OF EXAM: 07/02/2021 COMPARISON: Prior PET/CT November 27, 2020 and older studies HISTORY: Lymphoma progress study. 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 TECHNIQUE: Following the intravenous administration of 12.07 mCi of F-18 FDG, whole body images are performed from the skull base to the midthigh. Images are reviewed on the computer in the coronal, a xial, and sagittal planes. Reconstructed rotating images are created on independent workstation and reviewed on the computer. A localization and attenuation correction CT is performed in conjunction with the PET scan. Blood glucose level equals 119 SCAN: Subsequent Scan FINDINGS: Exam is again noted slightly suboptimal due to patient's large body habitus. SKULL BASE AND NECK: No areas of abnormal hypermetabolic uptake. Paranasal sinuses remain grossly cl ear. No abnormal hypermetabolic uptake corresponding to the enhancing large mass occupying the nasoph arynx on original study. Current study now Shows no new mass or suspicious hypermetabolic uptake at t his level. CHEST, MEDIASTINUM, AND HILAR REGION: No new areas of abnormal hypermetabolic uptake. ABDOMEN AND PELVIS: Liver size is stable and mildly enlarged with diffuse fatty infiltration. Spleen not enlarged. Nonspecific bowel uptake redemonstrated. No new suspicious abnormal hypermetabolic upta ke. Normal excretion again seen. OSSEOUS STRUCTURES: No new abnormal hypermetabolic uptake. OTHER CT: Stable right internal jugular Mediport catheter . Anteverted uterus with now displaced tubal ligation clips into the pelvic cul-de-sac. IMPRESSION: Slightly suboptimal study. No new areas of abnormal hypermetabolic uptake to suggest acti ve local neoplastic recurrence or new metastatic malignancy.
== END | disposition home or self-care (01) ==
LOC: RADPETMAIN 15:49
PROVIDERS: ATTEND Internal Medicine Hematology & Oncology
DX: C83.31 Diffuse large B-cell lymphoma, lymph nodes of head, face, and neck (principal)
CPT/HCPCS: 78815; A9552

== ENCOUNTER → 2022-12-14 | Outpatient (CLI) | payer OTHER ==
--- NOTE | 2022-12-15 08:21 | MM ---
Reason for Exam: Screening (asymptomatic). Baseline mammogram. Patient History: Menarche at age 9. First Full-Term at age 34. Late child-bearing (after 30). Postmenopausal. Patient has history of breast feeding. Risk Values: Ema 5 year model risk: 1.3%. NCI Lifetime model risk: 13.8%. Prior Study Comparison: Patient's first Mammogram. Tissue Density: There are scattered fibroglandular densities. Findings: Analyzed By CAD. There is no suspicious group of microcalcifications or new suspicious mass in either breast. Overall Assessment: Negative, BI-RAD 1 Management: Screening Mammogram of both breasts in [address] [facility] will attempt to contact patient to return for supplemental views and ultrasound if indicated. Patient should continue monthly self-breast exams. A clinical breast exam by your physician is recommended on an annual basis. This exam should not preclude additional follow-up of suspicious palpable abnormalities. Note on Ema scores and lifetime risk: 1. A Ema score greater than 3% is considered moderate risk. If this is the case, consider specialist referral to assess eligibility for a risk reducing agent. 2. If overall lifetime risk for the development of breast cancer is 20% or higher, the patient may qualify for future screening with alternating mammogram and breast MRI. Electronically signed and approved by: Darwin Larson DO
== END | disposition home or self-care (01) ==
LOC: RADMAMWWP 12:03
PROVIDERS: ATTEND Family Medicine
DX: Z12.31 Encounter for screening mammogram for malignant neoplasm of breast (principal); Z78.0 Asymptomatic menopausal state
CPT/HCPCS: 77063; 77067

== ENCOUNTER → 2023-03-24 | Outpatient (CLI) | payer OTHER ==
--- NOTE | 2023-03-25 10:32 | PE ---
EXAMINATION TYPE: PET CT fusion skull to thigh DATE OF EXAM: 03/24/2023 CLINICAL INDICATION:Female, 47 years old with history of C83.31 LYMPHOMA; TECHNIQUE: Following the intravenous administration of 11.11 mCi of F-18 FDG, whole body images are performed from the skull base to the midthigh. Images are reviewed on the computer in the coronal, axial, and sagittal planes. Reconstructed rotating images are created on independent workstation and reviewed on the computer. A non-contrast CT is performed in conjunction with the PET scan. Glucose level 123 mg/dL CT DLP: 1187.5 mGycm, Automated exposure control for dose reduction was used. COMPARISON: CT none. PET/CT 07/02/2021., FINDINGS: Mediastinal SUV mean is 2.6. Hepatic parenchyma SUV mean is 4.0. SKULL BASE AND NECK: No suspicious radiotracer activity. CHEST, MEDIASTINUM, AND HILAR REGION: No suspicious radiotracer activity. ABDOMEN AND PELVIS: No suspicious radiotracer activity. MUSCULOSKELETAL STRUCTURES: Focus of uptake within the right manubrium max SUV 6.6. No definitive CT correlate. OTHER CT: Right Bjispa-s-Ndbi with tip terminating in the superior vena cava. Heart is mildly enlarge d for size. There is coronary artery atherosclerosis. Left nonobstructing renal calculus measuring 4 mm. Surgical clip along the midline lower abdominal wall. Scattered colonic diverticula. The appendix is normal. IMPRESSION: New focus of increased uptake within the right manubrium concerning for recurrent metastatic disease. No additional sites of abnormal focal FDG activity identified
== END | disposition home or self-care (01) ==
LOC: RADPETMAIN 12:56
PROVIDERS: ATTEND Internal Medicine Hematology & Oncology
DX: C83.31 Diffuse large B-cell lymphoma, lymph nodes of head, face, and neck (principal)
CPT/HCPCS: 78815; A9552

== ENCOUNTER → 2024-03-28 | Outpatient (CLI) | payer OTHER ==
--- NOTE | 2024-03-30 09:00 | PE ---
EXAMINATION TYPE: PET CT fusion skull to thigh DATE OF EXAM: 03/28/2024 CLINICAL INDICATION:Female, 48 years old with history of C83.31 LYMPHOMA; TECHNIQUE: Following the intravenous administration of 8.61 mCi of F-18 FDG, whole body images are performed from the skull base to the midthigh. Images are reviewed on the computer in the coronal, a xial, and sagittal planes. Reconstructed rotating images are created on independent workstation and reviewed on the computer. A non-contrast CT is performed in conjunction with the PET scan. Glucose level 156 mg/dL CT DLP: 1181.5 mGycm, Automated exposure control for dose reduction was used. COMPARISON: CT 10/04/2020, PET/CT 03/24/2023 and priors dating back to 08/28/2020, MRI: None FINDINGS: Mediastinal SUV mean is 3.1. Hepatic parenchyma SUV mean is 3.5 SKULL BASE AND NECK: No suspicious radiotracer activity. CHEST, MEDIASTINUM, AND HILAR REGION: No suspicious radiotracer activity. ABDOMEN AND PELVIS: No suspicious radiotracer activity. MUSCULOSKELETAL STRUCTURES: Focus of uptake within the right manubrium max SUV 5.6, previously 6.6. No definitive CT correlate. OTHER CT: Right Pgydvo-i-Eamk with tip terminating in the superior vena cava. Heart is mildly enlarge d for size. There is coronary artery atherosclerosis. Left nonobstructing renal calculus measuring 4 mm. Surgical clip along the midline lower abdominal wall. Scattered colonic diverticula. The appendix is normal. IMPRESSION: Persistent focus of increased uptake within the right manubrium with decreased metabolic activity in today's exam. No additional sites of abnormal focal FDG activity identified [facility], , 03/30/2024 8:58 AM
== END | disposition home or self-care (01) ==
LOC: RADPETMAIN 14:42
PROVIDERS: ATTEND Internal Medicine Hematology & Oncology
DX: C83.31 Diffuse large B-cell lymphoma, lymph nodes of head, face, and neck (principal); K57.30 Diverticulosis of large intestine without perforation or abscess without bleeding; N20.0 Calculus of kidney; I25.10 Atherosclerotic heart disease of native coronary artery without angina pectoris; I51.7 Cardiomegaly
CPT/HCPCS: 78815; A9552

== ENCOUNTER 2024-04-27 10:52 | Emergency (ER) | payer OTHER ==
[2024-04-27 10:56] VITALS: BP 141/84; PULSE 105; RESP 18; TEMP 98
--- NOTE | 2024-04-27 11:15 | ED ---
Back Pain HPI - General Chief Complaint: Back Pain/Injury Stated Complaint: Back pain Time Seen by Provider: 04/27/24 11:03 Source: patient, RN notes reviewed Limitations: no limitations - History of Present Illness Initial Comments: This is a 48-year-old female with history of DM, neuropathy and seizure disorder presenting with left lower back and hip pain (09/24) since yesterday. Patient states she was bending over when she experienced sudden pain with pain radiating down her left lateral thigh to the foot and ankle. Denies any "popping" sound at the time of the incident. Patient describes pain as "fire ants" moving upper thigh. States pain is worse with movement and sitting, improved when supine. Endorses use of naproxen with minimal relief. Denies saddle paresthesia, urinary incontinence/retention. MD Complaint: back pain, back injury Onset/Timin -: days(s) Similar Symptoms Previously: No Place: home Radiation: left leg Severity scale (1-10): 6 Quality: burning Consistency: constant Improves With: immobilization, supine Worsens With: movement, sitting upright, walking Context: bending Associated Symptoms: denies other symptoms Treatments Prior to Arrival: NSAIDS - Related Data Home Medications Medication Instructions Recorded Confirmed Atorvastatin [Lipitor] 40 mg PO HS 07/02/20 10/07/20 Cyanocobalamin (Vitamin B-12) 5,000 mcg PO DAILY 07/02/20 10/07/20 [Vitamin B-12] Ergocalciferol [Vitamin D2 (1250 1,250 mcg PO MO 07/02/20 10/07/20 Mcg = [id number] Iu)] Gabapentin [Neurontin] 300 mg PO DAILY 07/02/20 10/07/20 Multivitamins, Thera [Multivitamin 1 tab PO DAILY 07/02/20 10/07/20 (formulary)] Fexofenadine HCl [Cyndee Allergy] 180 mg PO DAILY 10/07/20 10/07/20 Previous Rx's Medication Instructions Recorded metFORMIN HCL [Glucophage] 1,000 mg PO BID-W/MEALS #60 tab 05/28/17 Ketorolac [Toradol] 10 mg PO Q8HR #15 tab 10/07/20 methocarbamoL [Robaxin] 500 mg PO TID PRN #15 tab 04/27/24 predniSONE 50 mg PO DAILY #5 tab 04/27/24 Allergies Allergy/AdvReac Type Severity Reaction Status Date / Time montelukast [From Singulair] Allergy Rash/Hives Verified 04/27/24 10:53 Penicillins Allergy Unknown Verified 04/27/24 10:53 Childhood Tetanus Vaccines and Toxoid Allergy Unknown Verified 04/27/24 10:53 [Tetanus Vaccines & Toxoid] Review of Systems ROS Statement: Those systems with pertinent positive or pertinent negative responses have been documented in the HPI. ROS Other: All systems not noted in ROS Statement are negative. Past Medical History Past Medical History: Asthma, Diabetes Mellitus, Hyperlipidemia, Pneumonia, Seizure Disorder Additional Past Medical History / Comment(s): Lymphoma both maxillary sinuses diagnosed approximately 3 months ago/pt states the plan is to be treated with chemotherapy and she is to have a port placed on Monday, 2020, NIDDM type II, neuropathy bilateral feet, bronchitis, PCOS, past epilepsy with last seizure 25 yrs ago, chronic headaches and chronic low back pain, arthritis bilateral knnes/feet/back, tendonitis bilateral elbows. History of Any Multi-Drug Resistant Organisms: None Reported Past Surgical History: Adenoidectomy, Section, Orthopedic Surgery, Tonsillectomy, Tubal Ligation Additional Past Surgical History / Comment(s): sinus biopsy, Age 16-T&A with sinus scraped and used cocaine/pt accidentally was overdosed and arrested twice, L knee ACL removed, wisdom teeth extractions. port inserted Past Anesthesia/Blood Transfusion Reactions: No Reported Reaction Past Psychological History: Bipolar Smoking Status: Never smoker Past Alcohol Use History: Rare Past Drug Use History: Marijuana - Past Family History Mother Family Medical History: Diabetes Mellitus Additional Family Medical History / Comment(s): Mother of covid pneumonia. Father Family Medical History: Asthma, Cancer, Seizure Disorder Additional Family Medical History / Comment(s): Father of laryngeal cancer. He was smoker. General Exam Limitations: no limitations General appearance: alert, in no apparent distress Head exam: Present: atraumatic, normocephalic, normal inspection Eye exam: Present: normal appearance, PERRL, EOMI. Absent: scleral icterus, conjunctival injection, periorbital swelling ENT exam: Present: normal exam, mucous membranes moist Neck exam: Present: normal inspection. Absent: tenderness, meningismus, lymphadenopathy Respiratory exam: Present: normal lung sounds bilaterally. Absent: respiratory distress, wheezes, rales, rhonchi, stridor Cardiovascular Exam: Present: regular rate, normal rhythm, normal heart sounds. Absent: systolic murmur, diastolic murmur, rubs, gallop, clicks GI/Abdominal exam: Present: soft, normal bowel sounds. Absent: distended, tenderness, guarding, rebound, rigid Extremities exam: Present: normal inspection, full ROM, normal capillary refill, other (LUE neurovascularly and motor function intact. Posterior tibialis pulse +2). Absent: tenderness, pedal edema, joint swelling, calf tenderness Back exam: Present: normal inspection, paraspinal tenderness (Left superior gluteus muscle spasm and point tenderness), vertebral tenderness (T11/12 and lumbar spine tenderness without crepitus or step-off) Neurological exam: Present: alert, oriented X3, CN II-XII intact Psychiatric exam: Present: normal affect, normal mood Skin exam: Present: warm, dry, intact, normal color. Absent: rash Course Vital Signs 04/27/24 10:53 Temperature 98 F Pulse Rate 105 H Respiratory 18 Rate Blood Pressure 141/84 O2 Sat by Pulse 97 Oximetry Medical Decision Making - Medical Decision Making Was pt. sent in by a medical professional or institution (, PA, GRAPHICS SOFTWARE ENGINEER, urgent care, hospital, or skilled nursing...) When possible be specific @ -No Did you speak to anyone other than the patient for history (EMS, parent, family, police, friend...)? What history was obtained from this source @ -No Did you review nursing and triage notes (agree or disagree)? Why? @ -I reviewed and agree with nursing and triage notes Were old charts reviewed (outside hosp., previous admission, EMS record, old EKG, old radiological studies, urgent care reports/EKG's, skilled nursing records)? Report findings @ -No old charts were reviewed Differential Diagnosis (chest pain, altered mental status, abdominal pain women, abdominal pain men, vaginal bleeding, weakness, fever, dyspnea, syncope, headache, dizziness, GI bleed, back pain, seizure, CVA, palpatations, mental health, musculoskeletal)? @ -Differential Back Pain: Strain, zoster, cauda equina syndrome, epidural abscess, vertebral osteomyelitis, discitis, fracture, subluxation, disc herniation, DJD, spinal stenosis, dissection, AAA, pancreatitis, peptic ulcer disease, pyelonephritis, kidney stone, this is not meant to be an all-inclusive list. EKG interpreted by me (3pts min.). @ -Not done X-rays interpreted by me (1pt min.). @ -Thoracolumbar x-ray shows no acute fracture or dislocation with indications of chronic spondylosis. CT interpreted by me (1pt min.). @ -None done U/S interpreted by me (1pt. min.). @ -None done What testing was considered but not performed or refused? (CT, X-rays, U/S, labs)? Why? @ -None What meds were considered but not given or refused? Why? @ -None Did you discuss the management of the patient with other professionals (professionals i.e. , PA, GRAPHICS SOFTWARE ENGINEER, lab, RT, psych nurse, social insurance analyst, inner tube inserter, teacher, digital marketing officer, director of casework services)? Give summary @ -No Was smoking cessation discussed for >3mins.? @ -No Was critical care preformed (if so, how long)? @ -No Were there social determinants of health that impacted care today? How? (Homelessness, low income, unemployed, alcoholism, drug addiction, transportation, low edu. Level, literacy, decrease access to med. care, [facility], rehab)? @ -No Was there de-escalation of care discussed even if they declined (Discuss DNR or withdrawal of care, Hospice)? DNR status @ -No What co-morbidities impacted this encounter? (DM, HTN, Smoking, COPD, CAD, Cancer, CVA, ARF, Chemo, Hep., AIDS, mental health diagnosis, sleep apnea, morbid obesity)? @ -DM Was patient admitted / discharged? Hospital course, mention meds given and route, prescriptions, significant lab abnormalities, going to OR and other pertinent info. @ -Thoracolumbar x-ray shows no acute fracture or dislocation with indications of chronic spondylosis. Patient initially provided Toradol, Solu-Medrol and Norflex with significant pain relief noted by patient. Prednisone and Robaxin sent to patient's pharmacy. Discussed patient with Dr. Bermudez. Undiagnosed new problem with uncertain prognosis? @ -No Drug Therapy requiring intensive monitoring for toxicity (Heparin, Nitro, Insulin, Cardizem)? @ -No Were any procedures done? @ -No Diagnosis/symptom? @ -Sciatica Acute, or Chronic, or Acute on Chronic? @ -Acute Uncomplicated (without systemic symptoms) or Complicated (systemic symptoms)? @ -Uncomplicated Side effects of treatment? @ -No Exacerbation, Progression, or Severe Exacerbation? @ -No Poses a threat to life or bodily function? How? (Chest pain, USA, DC, pneumonia, PE, COPD, DKA, ARF, appy, cholecystitis, CVA, Diverticulitis, Homicidal, Suicidal, threat to staff... and all critical care pts) @ -No Disposition Clinical Impression: Sciatica Disposition: HOME SELF-CARE Condition: Good Instructions (If sedation given, give patient instructions): Sciatica (ED) Prescriptions: predniSONE 50 mg PO DAILY #5 tab methocarbamoL [Robaxin] 500 mg PO TID PRN #15 tab PRN Reason: muscle spasms Is patient prescribed a controlled substance at d/c from ED?: No Referrals: Deniz Vinson MD [Primary Care Provider] - 1-2 days Time of Disposition: 12:32
[2024-04-27] MEDS: methylPREDNISolone SOD SUCCI 125 MG/2 ML VIAL IM ONE (11:20)
[2024-04-27] MEDS: KETOROLAC 15 MG/ML 1 ML VIAL IM STA (11:21)
[2024-04-27] MEDS: ORPHENADRINE 30 MG/ML 2 ML VIAL IM STA (11:21)
--- NOTE | 2024-04-27 11:41 | XR ---
EXAMINATION TYPE: XR thoraco lumbar junction DATE OF EXAM: 04/27/2024 11:37 AM COMPARISON: None. CLINICAL INDICATION: Female, 48 years old with history of Thoracolumbar tenderness, pain TECHNIQUE: Thoracolumbar spine in two view(s) obtained. FINDINGS: Pedicles are intact. Spondylosis is noted within the lumbar spine thoracic spine. Disc heights appear preserved. Vertebral body heights are preserved. Alignment is preserved. IMPRESSION: 1. No acute osseous abnormality radiographically apparent. 2. Chronic spondylosis [facility], , 04/27/2024 11:38 AM
== END 2024-04-27 12:43 | disposition home or self-care (01) ==
LOC: EC 10:52
DX: M54.32 Sciatica, left side (principal); E11.9 Type 2 diabetes mellitus without complications; Z88.0 Allergy status to penicillin; Z88.7 Allergy status to serum and vaccine; Z88.8 Allergy status to other drugs, medicaments and biological substances
CPT/HCPCS: 72080; 99283; 96372 ×3; J2360; J1885; J2919

== ENCOUNTER → 2024-10-11 | Outpatient (CLI) | payer OTHER ==
--- NOTE | 2024-10-12 10:18 | PE ---
EXAMINATION TYPE: PET CT fusion skull to thigh DATE OF EXAM: 10/11/2024 CLINICAL INDICATION:Female, 49 years old with history of C83.31 DIFFUSE LARGE B-CELL LYMPHOMA, NODES OF HEA; TECHNIQUE: Following the intravenous administration of 11.11 mCi of F-18 FDG, whole body images are performed from the skull base to the Mid thigh. Images are reviewed on the computer in the coronal, axial, and sagittal planes. Reconstructed rotating images are created on independent workstation an d reviewed on the computer. A non-contrast CT is performed in conjunction with the PET scan. Glucos e level 136 mg/dL CT DLP: 1791 mGycm, Automated exposure control for dose reduction was used. COMPARISON: CT None, PET/CT 03/28/2024., MRI: None FINDINGS: Mediastinal SUV mean is 2.3. Hepatic parenchyma SUV mean is 3.2 SKULL BASE AND NECK: No suspicious radiotracer activity. CHEST, MEDIASTINUM, AND HILAR REGION: No suspicious radiotracer activity. ABDOMEN AND PELVIS: No suspicious radiotracer activity. MUSCULOSKELETAL STRUCTURES: Focus of uptake within the right manubrium max SUV 4.2, previously 5.6, 6.6. No definitive CT correla te. OTHER CT: Right Xioytl-k-Kevz with tip terminating in the superior vena cava. Heart is mildly enlarge d for size. There is coronary artery atherosclerosis. Left nonobstructing renal calculus measuring 4 mm. Surgical clip along the midline lower abdominal wall. Scattered colonic diverticula. The appendix is normal. IMPRESSION: Decrease in focus of increased uptake within the right manubrium. No additional sites of abnormal foc al FDG activity identified. [facility], , 10/12/2024 10:16 AM
== END | disposition home or self-care (01) ==
LOC: RADPETMAIN 14:28
PROVIDERS: ATTEND Internal Medicine Hematology & Oncology
DX: C83.31 Diffuse large B-cell lymphoma, lymph nodes of head, face, and neck (principal)
CPT/HCPCS: 78815; A9552

== ENCOUNTER → 2024-11-07 | Outpatient (CLI) | payer OTHER ==
--- NOTE | 2024-11-11 07:33 | BD ---
EXAMINATION TYPE: Axial Bone Density DATE OF EXAM: 11/07/2024 CLINICAL HISTORY: 49 years old Female. ICD-10 CODE: M81.0 OSTEOPENIA , Additional History: Height: 66 Weight: 284.4 FRAX RISK QUESTIONS: Alcohol (3 or more units per day): no Family History (Parent hip fracture): yes Glucocorticoids (More than 3mos): no (Ex: prednisone, prednisolone, methylprednisolone, dexamethasone, and hydrocortisone). History of Fracture in Adulthood: yes Secondary Osteoporosis: 1. Type 1 Diabetes: no 2. Hyperthyroidism: no 3. Menopause before 45: yes 4. Malnutrition: no 5. Chronic liver disease: no Rheumatoid Arthritis: no Current Tobacco Use: no RISK FACTORS HISTORY OF: Surgery to Spine/Hip(right/left)/Wrist (right/left): no EXAM MEASUREMENTS: Bone mineral densitometry was performed using the [employer] System. Bone mineral density as measured about the Lumbar spine is: ----- L1-L4(G/cm2): 1.216 T Score Values are as follows: ----- L1: -0.2 ----- L2: 0.6 ----- L3: 1.2 ----- L4: -0.6 ----- L1-L4: 0.3 Z Score Values are as follows: ----- L1: -1.0 ----- L2: -0.2 ----- L3: 0.4 ----- L4: -1.4 ----- L1-L4: -0.5 Bone mineral density : baseline Bone mineral density about the R hip (g/cm2): 1.173 Bone mineral density about the L hip (g/cm2): 1.097 T Score values are as follows: -----R Neck: 0.9 -----L Neck: 0.2 -----R Total: 1.3 -----L Total: 0.7 Z Score values are as follows: -----R Neck: 0.8 -----L Neck: 0.2 -----R Total: 0.9 -----L Total: 0.3 Bone mineral density : baseline FRAX%s: The graph provided illustrates a 5.1 % chance for a major osteoporotic fx and a 0.1% chance f or the hips probability for fx in 10 years time. IMPRESSION: Normal (Values between +1 and -1 indicate normal bone mass). Consider repeating this study in 5 year s or sooner if there is some new clinical indication. NOTE: T-SCORE=SD OF THE YOUNG ADULT MEAN. [facility], , 11/11/2024 7:31 AM
== END | disposition home or self-care (01) ==
LOC: RADBDWWP 15:06
PROVIDERS: ATTEND Internal Medicine Hematology & Oncology
DX: M81.0 Age-related osteoporosis without current pathological fracture (principal); H66.91 Otitis media, unspecified, right ear; C83.31 Diffuse large B-cell lymphoma, lymph nodes of head, face, and neck; Z78.0 Asymptomatic menopausal state
CPT/HCPCS: 77080